=== PATIENT | male | born 1945 | race Caucasian/White ===

== ENCOUNTER 2016-07-12 06:21 | Inpatient (IN) | payer BC, OTHER ==
[2016-06-08 09:14] VITALS: BMI 33.0
--- NOTE | 2016-06-08 09:49 | PAT Medication Instructions ---
Service Date Jun 08, 2016. Current Home Medication List Alprostadil (Vasodilator) ([place]), 1,000 MG RE PRN Ascorbic Acid (Vitamin C), 500 MG PO QAM Aspirin (Aspirin Ec), 81 MG PO QAM Eswjzqg-Rznptnaksqjhu-Tykeisej (Excedrin Extra Strength), 1 TAB PO UD PRN for Pain Calcium (Caltrate), 1 TAB PO QAM Metformin HCl (Metformin HCl), 1,000 MG PO BID Multivitamin (Multivitamin), 1 TAB PO QAM Naproxen (Aleve), 440 MG PO PRN Pravastatin Sod (Pravastatin Sodium), 40 MG PO QAM Ramipril (Altace *), 2.5 MG PO QAM Sildenafil Citrate (Viagra), 100 MG PO PRN PRN for UD Tadalafil (Cialis), 20 MG PO UD Vitamin B Cmplx/Vitc/Folic Ac (Nephrocaps), 1 CAP PO QAM [Sleep Aid], 2 TAB PO HS PRN for PRN [eye promise restore], 1 TAB PO QAM Medication Instructions For Your Scheduled Surgery - Check with surgeon for instructions: Yornmgg-Gtqkfazilwzgg-Vwjdjkiv (Excedrin Extra Strength), 1 TAB PO UD PRN for Pain Naproxen (Aleve), 440 MG PO PRN - Hold the following medications 48 hours prior to surgery: Metformin HCl (Metformin HCl), 1,000 MG PO BID - Hold the following medications the morning of surgery: Ramipril (Altace *), 2.5 MG PO QAM Sildenafil Citrate (Viagra), 100 MG PO PRN PRN for UD Calcium (Caltrate), 1 TAB PO QAM Vitamin B Cmplx/Vitc/Folic Ac (Nephrocaps), 1 CAP PO QAM Multivitamin (Multivitamin), 1 TAB PO QAM Ascorbic Acid (Vitamin C), 500 MG PO QAM Tadalafil (Cialis), 20 MG PO UD [eye promise restore], 1 TAB PO QAM Alprostadil (Vasodilator) ([place]), 1,000 MG RE PRN - Take the following medications the morning of surgery with a sip of water: Pravastatin Sod (Pravastatin Sodium), 40 MG PO QAM Aspirin (Aspirin Ec), 81 MG PO QAM (okay per surgeon instructions) - Take the following medications as scheduled the night before surgery: [Sleep Aid], 2 TAB PO HS PRN for PRN Sildenafil Citrate (Viagra), 100 MG PO PRN PRN for UD Alprostadil (Vasodilator) ([place]), 1,000 MG RE PRN If you have any questions please call us at [phone] (Helen Fisher PA-C ) or [phone] or [phone]
[2016-06-08 10:48] LABS: BASO % 0.4 %; BASO ABS # 0.02 K/uL (0-0.2); COMPLETE YES; EOS % 3.1 %; HEMATOCRIT 39.5 % (42-52); IG% 0.2 %; LYMPH % 40.3 %; LYMPH ABS # 1.92 K/uL (1.2-3.4); MEAN CELL VOLUME 88.8 fL (80-100); MEAN CORPUSCULAR HEMOGLOBIN 31.2 pg (25-34); MEAN CORPUSCULAR HGB CONC 35.2 g/dl (32-36); MEAN PLATELET VOLUME 10.7 fL (7.4-10.4); MONO % 8.6 %; NEUT % 47.4 %; PLATELET COUNT 227 K/uL (130-400); RED BLOOD COUNT 4.45 M/uL (4.7-6.1); WHITE BLOOD COUNT 4.77 K/uL (4.8-10.8)
--- NOTE | 2016-06-08 10:55 | DIAGNOSTIC IMAGING REPORT ---
CHEST PREADMISSION(PA/LAT) CLINICAL HISTORY: Preoperative evaluation COMPARISON STUDY: Chest radiograph February 16, 2015 FINDINGS: Lung volumes are normal. There is no pneumothorax or pleural effusion. Cardiac size is normal. Prominence of the right mediastinal contour is unchanged. There is no evidence of pulmonary edema. No consolidation is present. The appearance of the chest is unchanged. IMPRESSION: No acute cardiopulmonary findings. Electronically signed by: Ian Ray M.D. 06/08/2016 10:53 AM
[2016-06-08 11:02] LABS: INR 0.9 (0.9-1.1); PROTHROMBIN TIME (PATIENT) 10.1 SECONDS (9.0-12.0)
[2016-06-08 11:29] LABS: BLOOD UREA NITROGEN 23 mg/dl (7-18); BUN/CREATININE RATIO 24.2 (10-20); C-REACTIVE PROTEIN < 0.29 mg/dl (0-0.29); CARBON DIOXIDE 25 mmol/L (21-32); CHLORIDE 105 mmol/L (98-107); CREATININE 0.95 mg/dl (0.60-1.40); GLUCOSE 143 mg/dl (70-99); POTASSIUM 4.3 mmol/L (3.5-5.1); SODIUM 140 mmol/L (136-145)
[2016-06-08 11:35] LABS: CALCIUM 9.7 mg/dl (8.5-10.1)
--- NOTE | 2016-07-08 08:22 | HISTORY & PHYSICAL EXAMINATION ---
DATE OF ADMISSION: 07/12/2016 CHIEF COMPLAINT: Left knee pain. HISTORY OF PRESENT ILLNESS: A 71-year-old gentleman who presents for surgical treatment of his left knee. He has got a long history of knee problems and had his right knee replaced about 16 months ago. He has done well with this. He has continues to have persistent pain and discomfort in his left knee. He describes discomfort with weightbearing. He has got stiffness in his knee. He has been through extensive conservative treatment including injections as well as Voltaren gel. This takes the edge off but does not adequately treat it. His walking tolerance is a couple of blocks. He would like to proceed with total knee replacement. PAST MEDICAL HISTORY: 1. Hypertension. 2. Elevated cholesterol. 3. Diabetes. 4. Prostate cancer. 5. Obesity with BMI of 33. PREVIOUS SURGERIES: Include: 1. Right total knee replacement done 03/03/2015. 2. Laparoscopies. 3. Rhinoplasty. 4. Pneumothorax. 5. Prostate surgery. ALLERGIES: None. CURRENT MEDICINES: Include: 1. Metformin. 2. Unspecified. 3. Pravastatin. 4. Aspirin. 5. Vitamin C. 6. Vitamin B. 7. Cialis. 8. Viagra. 9. Seroquel. 10. Aleve. 11. Tylenol. 12. Calcium with vitamin D. SOCIAL HISTORY: A 71-year-old gentleman. He is . No smoking or alcohol intake. FAMILY HISTORY: Significant for heart disease, Alzheimer disease, prostate cancer. REVIEW OF SYSTEMS: Significant for diabetes. Fairly well controlled. Denies any chest pain or shortness of breath. No history of DVT or PE. No dysuria. Does have a history of prostate cancer without recurrence. PHYSICAL EXAMINATION: GENERAL: Reveals a healthy, pleasant middle-aged male who looks to be in good health. HEAD, EYES, EARS, NOSE, AND THROAT EXAMINATION: Benign. NECK: Supple. No lymphadenopathy. LUNGS: Clear to auscultation. HEART: Has a regular rate and rhythm. ABDOMEN: Soft, nontender, nondistended. EXTREMITY EXAMINATION: Grossly neurovascularly intact except as follows: Examination of the left knee reveals slight varus alignment. Slight varus thrust with weightbearing. He has got bony hypertrophy medially. Small knee effusion. Range of motion is 5-120. No instability. X-RAYS: X-rays of the left knee from previously reviewed. It shows advanced medial and patellofemoral DJD. He has got complete loss of his medial joint space as well as advanced patellofemoral disease. ASSESSMENT: A 71-year-old gentleman 6 months out from a right knee replacement with advanced left knee degenerative joint disease. He would like to proceed with total knee replacement. PLAN: We are going taken to the operating room and do a left total knee replacement. The risks and benefits of this procedure were explained to the patient include but not limited to DVT, PE, , infection, neurological injury, vascular injury, bleeding problem, pain, limited range of motion, stiffness, failure to his symptoms, incomplete relief of symptoms, need for further surgery in the future, fracture, need for blood transfusion, etc. The patient understands and desires to proceed. Informed consent was obtained. There has been no change in his medical situation since his last visit. Labs were all normal. EKG showed sinus rhythm with first degree AV block. Chest x-ray is normal. As far as discharge plans, he is planning to be discharged to home with some home health using [facility] program. We will see him back 2 weeks postop. RAHUL
[~2016-07-12] VITALS: Ht 170.2 cm; Wt 95.7 kg
[2016-07-12] VITALS (12 sets, daily range): BP systolic 126–170; BP diastolic 65–94; PULSE 56–77; TEMP 36.5–37.1; O2SAT 95–100; Ht 170.2 cm; Wt 95.7 kg
[~2016-07-12 06:21] MED LIST: ACETAMINOPHEN 500 MG TAB PO SCH; ALPR1SUP6 RE; ALT25 PO; ASCO-63 PO; ASPI-391 PO; ASPI81TA28 PO; B-COCAP2 PO; BUPIVACAINE LIPOSOME 266 MG, BUPIVACAINE/EPINEPHRINE INJ 50 ML, SODIUM CHLORIDE 0.9% PF... INFIL SCH; CALCTAB5 PO; CEFAZOLIN 2000 MG/60 ML D5W 60 ML IV SCH; FAMOTIDINE 20 MG TAB PO SCH; GABAPENTIN 300 MG CAP PO SCH; GLC500 PO; LACTATED RINGER'S 1000ML 500 ML IV ONE; LACTATED RINGER'S 1000ML IV SCH; METOCLOPRAMIDE HCL 10 MG TAB PO SCH; MULT-506 PO; NAPR1TAB9 PO; PRVC/40 PO; SCOPOLAMINE 1.5 MG TDSY TD SCH; SILD100T PO; SLEEP AID PO; TADA10TA PO; eye promise restore PO
[2016-07-12] MEDS ORDERED: TRANEXAMIC ACID INJ 1,000 MG in SODIUM CHLORIDE 0.9% 100ML 100 ML IV SCH ×2 (06:30→17:00)
[2016-07-12] MEDS ORDERED: BUPIVACAINE 0.5 % 5 MG/1 ML PF 10ML VIAL ONE (06:35)
[2016-07-12] MEDS ORDERED: BUPIVACAINE 0.25% 30 ML VIAL ONE (06:35)
--- NOTE | 2016-07-12 06:50 | History & Physical Bridge Note ---
H&P Re-Evaluation Bridge Note: I have examined the patient, reviewed the History & Physical and in the interval since the performance of the History & Physical I have noted the following changes of clinical significance: No changes noted
[2016-07-12] MEDS ORDERED: FENTANYL CITRATE INJ 50 MCG/1 ML 2 ML VIAL ONE (07:23)
[2016-07-12] MEDS ORDERED: MIDAZOLAM HCL 1 MG/ML 2ML VIAL ONE (07:23)
[2016-07-12] MEDS ORDERED: PROPOFOL IV EMULSION 10 MG/ML 20 ML VIAL IV ONE (07:23)
[2016-07-12] MEDS ORDERED: LIDOCAINE HCL 2% 2 ML VIAL (20MG/ML) ONE (07:23)
[2016-07-12] MEDS ORDERED: BUPIVACAINE LIPOSOME 1/3% 266 MG/20 ML VIAL INFIL ONE (08:30)
[2016-07-12] MEDS ORDERED: ATROPINE SULFATE 0.1 MG/ML 5ML SYR IV PRN (09:00)
[2016-07-12] MEDS ORDERED: HYDROmorphone INJ 1 MG/ML SYR IV PRN (09:00)
[2016-07-12] MEDS ORDERED: EpHEDrine SULFATE INJ 50 MG/ML AMP IV PRN (09:00)
[2016-07-12] MEDS ORDERED: MEPERIDINE HCL 25 MG/ML CARP IV PRN (09:00)
[2016-07-12] MEDS ORDERED: FENTANYL CITRATE INJ 50 MCG/1 ML 2 ML VIAL IV PRN (09:00)
[2016-07-12] MEDS ORDERED: ONDANSETRON INJ 2 MG/ML 2 ML VIAL IV PRN ×2 (09:00→10:30)
[2016-07-12] MEDS ORDERED: LABETALOL HCL IV 5 MG/ML 20ML IV PRN (09:00)
[2016-07-12] MEDS ORDERED: BACITRACIN 50000 UNIT VIAL IR ONE (10:03)
--- NOTE | 2016-07-12 10:24 | [facility] Post Operative Brief Note ---
Immediate Operative Summary Operative Date Jul 12, 2016. Pre-Operative Diagnosis Left Knee Advanced Degenerative Joint Disease Post-Operative Diagnosis Left Knee Advanced Degenerative Joint Disease Procedure(s) Performed Left Total Knee Arthroplasty Surgeon Dr. Banda Ssas Developer Surgeon(s) MICHEL Mandujano Estimated Blood Loss 50 ml Findings Left Knee DJD + Ganglion Fluids (cc crystalloids) 1500 cc Specimens A. Left Knee Bone and Tissue B. Left Knee Mass, Possible Ganglion Drains None Anesthesia Spinal Complication(s) None Disposition Recovery Room / PACU
[2016-07-12] MEDS ORDERED: BISACODYL 10 MG SUPP PR PRN (10:30)
[2016-07-12] MEDS ORDERED: DiphenhydrAMINE HCL 50 MG/ML VIAL IV PRN (10:30)
[2016-07-12] MEDS ORDERED: ASPIRIN ACETAMINOPHEN CAFFEINE PO PRN (10:30)
[2016-07-12] MEDS ORDERED: MAGNESIUM HYDROXIDE SUSP 30 ML UDC PO PRN (10:30)
[2016-07-12] MEDS ORDERED: ALUMINUM/MAGNESIUM/SIMETH (MAALOX MAX) 30 ML UDC PO PRN (10:30)
[2016-07-12] MEDS ORDERED: SILVER SULFADIAZINE 1% CR 50 GM JAR EXT PRN (10:30)
[2016-07-12] MEDS ORDERED: NON-FORMULARY MEDICATION (Tadalafil (Cialis) 20 MG) PO SCH (10:30)
[2016-07-12] MEDS ORDERED: MoRPHine SULFATE 2 MG/ML CARP IV PRN (10:30)
[2016-07-12] MEDS ORDERED: TAMSULOSIN HCL 0.4 MG CAP PO PRN (10:30)
[2016-07-12] MEDS ORDERED: METOCLOPRAMIDE HCL INJ 5 MG/ML 2 ML VIAL IV PRN (10:30)
[2016-07-12] MEDS ORDERED: ALPROSTADIL RE SCH (10:30)
[2016-07-12] MEDS ORDERED: SLEEP AID PO PRN (10:30)
[2016-07-12] MEDS ORDERED: NON-FORMULARY MEDICATION (Sildenafil Citrate (Viagra) 100 MG) PO PRN (10:30)
[2016-07-12] MEDS ORDERED: OXYCODONE HCL IR 5 MG TAB (IMMEDIATE RELEASE) PO PRN (10:30)
[2016-07-12] MEDS ORDERED: DEXTROSE 50% 50 ML SYR IV PRN (10:45)
[2016-07-12] MEDS ORDERED: GLUCOSE 40% GEL 15 GM TUBE PO PRN (10:45)
[2016-07-12] MEDS ORDERED: GLUCOSE 10 TABS/TUBE PO PRN (10:45)
[2016-07-12] MEDS ORDERED: GLUCAGON FOR INJ 1 MG VIAL SQ PRN (10:45)
--- NOTE | 2016-07-12 10:56 | OPERATIVE REPORT ---
DATE OF OPERATION: 07/12/2016 SURGEON: Stu Banda MD BREAKER UP MACHINE OPERATOR: MICHEL Green PREOPERATIVE DIAGNOSIS: Left knee degenerative joint disease. POSTOPERATIVE DIAGNOSIS: 1. Left knee degenerative joint disease. 3. Left knee mass, probable ganglion. PROCEDURES PERFORMED: 1. Left cemented posterior stabilized total knee arthroplasty. 2. Excisional biopsy of left knee mass, probable ganglion. SPECIMENS: 1. Left knee sent for pathology. 2. Left soft tissue mass sent for pathology. Likely ganglion. TOURNIQUET TIME: 54 minutes at 300 mmHg. ANESTHESIA: Spinal with adductor canal block. DRAINS: None. OPERATIVE INDICATIONS: The patient is a 71-year-old very active gentleman, who has had a long history of knee problems. He underwent a right knee replacement a little over a year ago and has done well from this. He has developed persistent and progressive pain in the left knee, unresponsive to conservative treatment. He elected to proceed with left total knee arthroplasty. OPERATIVE FINDINGS: Operative findings revealed advanced left knee DJD. He had grade 4 [id number] disease in all 3 compartments. Eburnation of the trochlea as well as the lateral side of the patella. He did have a moderate soft tissue mass, emanating from the medial aspect of the joint capsule consistent with a ganglion. This was sent for pathology. OPERATIVE IMPLANTS: Operative implants consisted of: 1. Biomet Vanguard size 67.5 left posterior stabilized femoral component. 2. Biomet size 71 tibial tray. 3. A 12-mm posterior stabilized polyethylene insert. 4. A 31 x 8 all poly patella. OPERATIVE PROCEDURE: The patient was taken to the operating room, identified and placed on the operating table in the supine position. All contact areas were appropriately padded. IV antibiotics were provided by the anesthesia team. A spinal anesthetic and adductor canal block had been provided in the holding area. Mendez catheter was placed in sterile fashion. A left thigh tourniquet was then placed and left lower extremity was then prepped and draped in usual sterile fashion. Left leg was elevated and exsanguinated with Esmarch and tourniquet was placed at 300 mmHg. An anterior approach to the left knee was then performed through a longitudinal incision centered over the patella. Sharp dissection was carried out through the subcutaneous tissues down to the level of the extensor mechanism. Upon defining the extensor mechanism, there was a rent in the joint capsule anteromedially, just medial to the patellar tendon, which showed some emanating tissue coming out of this. A medial parapatellar arthrotomy incision was made. I dissected this tissue out and it appeared like a fairly large ganglion. This was sent for pathology. The remainder of the medial parapatellar arthrotomy incision was completed. Some subperiosteal dissection was carried out medially. The fat pad was resected from beneath the patellar tendon. The lateral patellofemoral ligament was released. The patella was everted and knee was flexed. The osteophytes were taken off the distal femur. The ACL and PCL were then released from the distal femur and the tibia subluxated anteriorly. The external tibial alignment jig was then placed in the anterior face of the tibia and adjusted 14 mm medially. Proximal tibial cut was made to remove about 2-3 mm of bone from the most deficient aspect of the medial tibial plateau. Tibia was then sized to a size 71. I did downsize this just slightly to maximize external rotation due to the patellofemoral tracking and arthritis. The attention then drawn to the femur. The distal femur was entered with a sharp drill. Intramedullary canal was suctioned. A left 5-degree valgus cutting guide was placed. Distal femoral cutting block was pinned in place. Distal femoral cut was made to take an additional 3 mm of bone off the distal femur. The femur was then sized to a size 67.5. We did downsize this just slightly. The AP cutting block was pinned parallel to the epicondylar axis, which was 5 degrees of external rotation. The anterior cut, anterior chamfer, posterior cut, and posterior chamfer cuts were made. Box cutting guide was placed and adjusted slightly lateral and the box cut was made. The knee was flexed. The remnants of the medial and lateral menisci were excised. The osteophytes were taken off the posterior aspect of the femur. Trial femoral component was placed. Tibial tray was pinned in maximum external rotation and the drill and stem punch were used to create defect in proximal tibia for the tibial tray. The knee was then trialed and the 12-mm insert fit most appropriately. Attention was then drawn to the patella. The patella was cleaned of all soft tissues. Patella thickness measured 22 mm, cut down to 13. It was sized to a size 31 patella. Lug holes were drilled for the 31 patella. Lateral osteophyte was removed. Patella button was placed. Knee was taken through range of motion and patella tracked nicely with no thumbs test. Attention was then drawn toward placement of the permanent components. All trial components were removed. A bone plug was placed in the distal femur to limit blood loss. A double batch of [place] G cement was mixed. A left size 67.5 posterior stabilized femoral component, size 71 tibial tray, a 12-mm posterior stabilized polyethylene insert, and a 31 x 8 all poly patella were then cemented in place. Knee was brought out into full extension until cement hardened. A final cement check was then performed. Pericapsular tissues were injected with a total of 100 mL of a combination of 20 mL of Exparel, 30 mL of normal saline, and 50 mL of 0.25% Marcaine with epinephrine. The patient did receive 1 gram of tranexamic acid. The tourniquet was let down for a final tourniquet time of 54 minutes. Hemostasis was assured with use of electrocautery. The wound was once again irrigated. The extensor mechanism was then closed with a combination of #1 PDS suture and #1 Vicryl suture in a [id number] fashion. Extensor mechanism was checked and found to be intact. Subcutaneous tissues were then closed with 2-0 Dexon suture in a buried interrupted fashion. Skin was closed skin jose. Leg was then cleaned and dried and a sterile dressing of Xeroform, 4 x 4, sterile cast padding and Nicolas bandage were applied. The patient then transferred to the recovery room in stable condition. The patient tolerated the procedure well with no complications. All needle and sponge counts were correct at the end of the operation. I attest to the content of the Intraoperative Record and any orders documented therein. Any exceptio ns are noted below.
--- NOTE | 2016-07-12 11:10 | DIAGNOSTIC IMAGING REPORT ---
LEFT KNEE 1 OR 2 VIEWS ROUTINE CLINICAL HISTORY: Left knee degenerative joint disease. Arthroplasty. COMPARISON: Knee radiograph March 17, 2016. FINDINGS: Alignment of the total left knee arthroplasty is anatomic. There is no fracture or unexpected radiopaque foreign body. Skin jose are present. IMPRESSION: Expected findings following total left knee arthroplasty. Electronically signed by: Ian Ray M.D. 07/12/2016 11:08 AM Dictated Date/Time: 07/12/2016 11:07 AM
--- NOTE | 2016-07-12 12:32 | Anesthesiology Progress Note ---
Anesthesia Post Op Note Date & Time Jul 12, 2016 at 12:31 Vital Signs Pain Intensity: 0.0 Vital Signs Past 12 Hours Date Time Temp Pulse Resp B/P Pulse Ox O2 Delivery O2 Flow Rate FiO2 07/12/16 12:03 36.6 56 17 135/76 98 Nasal Cannula 3.0 07/12/16 11:37 98 Nasal Cannula 2.0 07/12/16 11:31 36.7 58 16 140/65 98 Nasal Cannula 2.0 07/12/16 11:30 97 Nasal Cannula 2.0 07/12/16 11:15 37.0 56 15 140/66 97 Nasal Cannula 2 07/12/16 11:05 37.0 56 15 134/72 98 Nasal Cannula 2 07/12/16 10:55 61 15 142/81 97 Nasal Cannula 2 07/12/16 10:45 59 15 136/80 97 Nasal Cannula 2 07/12/16 10:35 64 15 156/87 99 Mask 10 07/12/16 10:29 36.4 83 16 177/87 99 Mask 10 07/12/16 07:13 36.9 77 20 160/94 95 Room Air Notes Mental Status: alert / awake / arousable, participated in evaluation Pt Amnestic to Procedure: Yes Nausea / Vomiting: adequately controlled Pain: adequately controlled Airway Patency, RR, SpO2: stable & adequate BP & HR: stable & adequate Hydration State: stable & adequate Neuraxial Anesthesia: was administered, sensory block is resolving Anesthetic Complications: no major complications apparent
[2016-07-12] MEDS: SODIUM CHLORIDE 0.9% 1000ML 1,000 ML IV SCH ×2 (12:39→20:27)
[2016-07-12] MEDS: ACETAMINOPHEN 500 MG TAB PO SCH ×2 (13:27→21:59)
[2016-07-12] MEDS: KETOROLAC TROMETHAMINE 15 MG/ML VIAL IV. SCH ×2 (13:28→20:28)
--- NOTE | 2016-07-12 14:45 | PROGRESS NOTE ---
DATE: 07/12/2016 SUBJECTIVE: A 71-year-old gentleman, postop from a left total knee replacement. He is doing well. Just starting to get soreness in his leg. No chest pain or shortness of breath. Not feeling dizzy or lightheaded. OBJECTIVE: VITAL SIGNS: Temperature is 36.7. Vital signs stable. PHYSICAL EXAMINATION: GENERAL: Reveals a healthy pleasant middle-aged male. He is lying in bed, looks pretty comfortable. He used to work on his computer. LUNGS: Clear to auscultation. HEART: Regular rate and rhythm. ABDOMEN: Soft, nontender, nondistended. EXTREMITIES: Grossly neurovascularly intact except as follows: Examination of the left lower extremity reveals the leg to be well aligned. Dressing is clean, dry, and intact. He can dorsiflex and plantarflex his foot appropriately. He has got brisk refill. X-RAYS: X-rays of the left knee from recovery room were reviewed. It shows a left cemented posterior stabilized total knee arthroplasty. Components look to be in good position. No signs of problems. ASSESSMENT: A 71-year-old gentleman, postop from a left knee replacement, doing well. His pain is controlled. He is neurologically intact. PLAN: 1. DVT prophylaxis including thigh-high TEDs, SCDs, and aspirin twice a day. 2. PT/OT. Weightbearing as tolerated. Left total knee protocol. 3. Pain control. Doing well with current pain regimen. 4. IV antibiotics x24 hours. 5. Disposition: Plan to discharge to home with some home health once adequately recovered.
[2016-07-12] MEDS: CHECK SCOPOLAMINE PATCH PLACEMENT SCH ×2 (15:42→23:49)
[2016-07-12] MEDS: CEFAZOLIN IV 2,000 MG in DEXTROSE 5% 50ML 50 ML IV SCH ×2 (15:42→23:49)
[2016-07-12] MEDS ORDERED: INSULIN HUMAN REGULAR SC SCH (17:15)
[2016-07-12] MEDS: FERROUS GLUCONATE 324 MG TAB PO SCH (17:47)
[2016-07-12] MEDS: INSULIN HUMAN REGULAR SC SCH ×2 (17:54→20:39)
[2016-07-12] MEDS: ASPIRIN 325 MG ECTAB PO SCH (20:29)
[2016-07-12] MEDS: TAPENTADOL ER 50 MG TABCR PO SCH (20:29)
[2016-07-12] MEDS: ENALAPRIL MALEATE 10 MG TAB PO SCH (20:29)
[2016-07-12] MEDS: DOCUSATE SODIUM 100 MG CAP PO SCH (20:31)
[2016-07-12] MEDS: ZOLPIDEM TARTRATE 5 MG TAB PO PRN (22:01)
[2016-07-13] MEDS: KETOROLAC TROMETHAMINE 15 MG/ML VIAL IV. SCH ×4 (02:22→21:10)
[2016-07-13] MEDS: ZOLPIDEM TARTRATE 5 MG TAB PO PRN ×2 (02:25→22:11)
[2016-07-13 03:10] VITALS: BP 132/73; PULSE 61; TEMP 36.6; O2SAT 95
[2016-07-13] MEDS: SODIUM CHLORIDE 0.9% 1000ML 1,000 ML IV SCH (04:47)
[2016-07-13] MEDS: ACETAMINOPHEN 500 MG TAB PO SCH ×3 (06:04→22:11)
[2016-07-13 06:35] LABS: HEMATOCRIT 32.6 % (42-52); MEAN CELL VOLUME 87.9 fL (80-100); MEAN CORPUSCULAR HGB CONC 35.3 g/dl (32-36); MEAN PLATELET VOLUME 10.1 fL (7.4-10.4); PLATELET COUNT 208 K/uL (130-400); RED BLOOD COUNT 3.71 M/uL (4.7-6.1); WHITE BLOOD COUNT 6.03 K/uL (4.8-10.8)
[2016-07-13 07:08] LABS: CALCIUM 8.1 mg/dl (8.5-10.1); CREATININE 0.9 mg/dl (0.60-1.40); POTASSIUM 3.9 mmol/L (3.5-5.1)
[2016-07-13 07:37] VITALS: O2SAT 94
[2016-07-13 07:47] VITALS: BP 156/84; PULSE 69; TEMP 36.6; O2SAT 94
[2016-07-13] MEDS: CHECK SCOPOLAMINE PATCH PLACEMENT SCH ×2 (08:28→16:00)
[2016-07-13] MEDS: INSULIN HUMAN REGULAR SC SCH ×4 (08:33→21:25)
[2016-07-13] MEDS: TAPENTADOL ER 50 MG TABCR PO SCH ×2 (08:57→21:28)
[2016-07-13] MEDS: CEROVITE ADV FORMULA TAB PO SCH (08:58)
[2016-07-13] MEDS: CALCIUM 600MG + VIT D 400 IU TAB PO SCH (08:58)
[2016-07-13] MEDS: PRAVASTATIN SOD 40 MG TAB PO SCH (08:58)
[2016-07-13] MEDS: NEPHROCAPS PO SCH (08:58)
[2016-07-13] MEDS: ASPIRIN 325 MG ECTAB PO SCH ×2 (08:58→21:26)
[2016-07-13] MEDS: ASCORBIC ACID 500 MG TAB PO SCH (08:59)
[2016-07-13] MEDS: MULTIVITAMIN TAB PO SCH (08:59)
[2016-07-13] MEDS: DOCUSATE SODIUM 100 MG CAP PO SCH ×2 (08:59→21:26)
[2016-07-13] MEDS: ENALAPRIL MALEATE 10 MG TAB PO SCH (08:59)
[2016-07-13] MEDS: PANTOprazole SOD 40 MG TAB PO SCH (08:59)
[2016-07-13] MEDS: FERROUS GLUCONATE 324 MG TAB PO SCH ×3 (08:59→17:57)
[2016-07-13] MEDS ORDERED: MULTIVITAMIN TAB PO SCH (09:00)
[2016-07-13] MEDS ORDERED: RXC5 PO (10:11)
[2016-07-13] MEDS ORDERED: MORP15TA19 PO (10:11)
[2016-07-13] MEDS ORDERED: ASPEC325 PO (10:11)
[2016-07-13] MEDS ORDERED: ACET-1138 PO (10:11)
--- NOTE | 2016-07-13 10:13 | Discharge Instructions ---
Discharge Instructions Admission Reason for Admission: Left Knee Degenerative Joint Disease Discharge Discharge Diagnosis / Problem: Left Knee Replacement Discharge Goals Goal(s): Decrease discomfort, Improve function, Increase independence, Improve disease control, Therapeutic intervention Activity Recommendations Activity Limitations: per Instructions/Follow-up section Weightbearing Status: Left weightbearing . Instructions / Follow-Up Instructions / Follow-Up ACTIVITY RECOMMENDATIONS: Physical Therapy: * You will go to physical therapy three times each week for four to six weeks after your surgery in order to regain your knee range of motion and to retrain your knee to work properly. * It is just as important to make sure you are getting your knee perfectly straight as it is to regain your knee bend. * Taking a pain pill an hour before therapy can help you have a more productive and comfortable therapy session. Home Exercise: * You were shown a series of exercises (heel props, heel slides, etc.) in the hospital. Do these exercises three to four times each day including the exercises you were shown in physical therapy. Walking: * Get up and walk several times each day. For the first four weeks, try not to stand or walk for more than one hour at a time. If you do stand or walk for more than one hour, you will not hurt anything, but your knee and leg will likely swell. * As you feel comfortable, you may change from the walker or crutches to a cane and then to independent walking. MEDICATIONS: New Medicine: * You will likely be taking one or more of these medications: 1. MS Contin - A long-acting pain medication. Take 1 tablet twice a day for the first ten days to decrease your baseline level of pain. 2. Oxycodone - A quick and shorter-acting pain medication. Take one to two tablets every four to six hours to lessen your pain. 3. Aspirin - Thins your blood to lessen the chance of forming a blood clot. * The most common side effects of pain medicine and iron are nausea and constipation. If nausea or constipation is too much of a problem or if you have any questions about your new medicines or doses, call [facility] at . We will try to help you manage these issues. VERY IMPORTANT TO READ AND REVIEW" Pain: * The immediate post-operative period after knee replacement surgery is often quite painful. * You are given a prescription for pain medicine. You should take it, as directed, when you need it, especially before physical therapy and before going to bed. Pain that interferes with sleep is very common and can last several months. * You will likely need pain medicine for the first four to six weeks. It will not stop all of the pain. The pain will lessen and as you feel better, you may change to milder pain medicine such as Tylenol. * The most common side effects of pain medicine are nausea and constipation, so don't take more than you need. SPECIAL CARE INSTRUCTIONS: TEDs/Elastic Stockings: * The white elastic stockings help limit swelling and prevent blood clots from forming in your legs. The more you wear them, the more they work. * Wear them for six weeks after knee replacement surgery and four weeks after partial knee replacement. Prevention of Infection: * Take antibiotics one hour before any dental cleaning, dental work, urological procedure, gastrointestinal procedure or any invasive surgery in order to prevent your new joint from getting infected. * You may get the antibiotics from the doctor performing the procedure or you may call our office at before and we will call in a prescription to the pharmacy of your choice. Things to Watch For: * Drainage from the incision site that occurs more than one week after your surgery. * Severely increased knee/leg pain or swelling. * Increased redness at the incision site. * Fever above 102 degrees Fahrenheit. * Unusual chest pain or shortness of breath. * Unusual pain or burning with urination. Call [facility] at with any of the above problems or if you have any questions about your medicines or recovery. FOLLOW UP VISIT: Make an appointment to see your doctor for approximately two weeks after surgery for a progress check and staple removal by calling the office at . Current Hospital Diet Patient's current hospital diet: Diabetes Type 2 Diet Discharge Diet Recommended Diet: Diabetes Type 2 Diet Procedures Procedures Performed: Left Total Knee Arthroplasty Pending Studies Studies pending at discharge: no Medical Emergencies . Who to Call and When: Medical Emergencies: If at any time you feel your situation is an emergency, please call [phone] immediately. . Non-Emergent Contact Non-Emergency issues call your: Surgeon . "Provider Documentation" section prepared by Stu Banda. VTE Core Measure Inpt VTE Proph given/why not?: Other Anticoagulation, T.E.D. Stockings, SCD's
--- NOTE | 2016-07-13 10:24 | PROGRESS NOTE ---
DATE: 07/13/2016 SUBJECTIVE: A 71-year-old gentleman postop day 1 from a left knee replacement. He is doing well. Pain has been controlled. No chest pain or shortness of breath. Not feeling dizzy or lightheaded. OBJECTIVE: VITAL SIGNS: Temperature 36.6. Vital signs stable. PHYSICAL EXAMINATION: GENERAL: Reveals a healthy, pleasant middle-aged male. He was up walking around his room using his walker when I visited him this morning. LUNGS: Clear to auscultation. HEART: Regular rate and rhythm. ABDOMEN: Soft, nontender, nondistended. EXTREMITIES: Grossly neurovascularly intact except as follows: Examination of the left lower extremity reveals the dressing to be clean, dry and intact. He can dorsiflex and plantarflex his foot appropriately. NEUROLOGIC: He is neurologically intact. LABORATORY DATA: Hemoglobin 11.5, hematocrit 32.6. Electrolytes are stable. ASSESSMENT: A 71-year-old gentleman postop day 1 from a left knee replacement, doing pretty well. Pain is controlled. PLAN: 1. DVT prophylaxis including thigh-high TEDs, SCDs, and aspirin twice a day. 2. PT/OT. Weightbearing as tolerated. Left total knee protocol. 3. Pain control, doing pretty well with current pain regimen. 4. Diabetes, on insulin sliding scale coverage. 5. Disposition: Plan to discharge to home with home health once adequately recovered.
[2016-07-13 12:00] VITALS: BP 145/84; PULSE 80; TEMP 36.7; O2SAT 93
[2016-07-13 15:16] VITALS: BP 159/83; PULSE 81; TEMP 37.5; O2SAT 95
[2016-07-13 23:11] VITALS: BP 143/79; PULSE 79; TEMP 37.2; O2SAT 95
[2016-07-14] MEDS: ZOLPIDEM TARTRATE 5 MG TAB PO PRN (00:04)
[2016-07-14] MEDS: CHECK SCOPOLAMINE PATCH PLACEMENT SCH (00:28)
[2016-07-14] MEDS: KETOROLAC TROMETHAMINE 15 MG/ML VIAL IV. SCH ×3 (01:57→10:11)
[2016-07-14] MEDS: ACETAMINOPHEN 500 MG TAB PO SCH (05:41)
[2016-07-14 06:55] VITALS: BP 168/88; PULSE 77; TEMP 37.1; O2SAT 96
--- NOTE | 2016-07-14 07:30 | PROGRESS NOTE ---
DATE: 07/14/2016 SUBJECTIVE: 71-year-old gentleman postop day 2 from a left knee replacement. He is doing well. Pain is controlled. No chest pain or shortness of breath. Not feeling dizzy or lightheaded. OBJECTIVE: VITAL SIGNS: Temperature 37.1. Vital signs stable. Some mild hypertension. PHYSICAL EXAMINATION: GENERAL: Reveals a healthy, pleasant, middle-aged male. He is sitting up in bed and looks pretty comfortable. LUNGS: Clear to auscultation. HEART: Regular rate and rhythm. ABDOMEN: Soft, nontender, nondistended. EXTREMITIES: Grossly neurovascularly intact except as follows: Examination of the left lower extremity reveals the leg to be well aligned. There is some moderate swelling. Small amount of drainage. He can dorsiflex and plantarflex his foot appropriately. Calf is soft and supple. ASSESSMENT: 71-year-old gentleman postop day 2 from a left knee replacement, doing pretty well. PLAN: 1. DVT prophylaxis including thigh-high TEDs, SCDs, and aspirin twice a day. 2. PT/OT. Weightbearing as tolerated. Left total knee protocol. 3. Pain control, doing pretty well with current pain regimen. 4. Disposition: Plan to discharge to home with some home health once adequately recovered.
[2016-07-14] MEDS: MULTIVITAMIN TAB PO SCH (09:00)
[2016-07-14] MEDS: ASPIRIN 325 MG ECTAB PO SCH (09:43)
[2016-07-14] MEDS: NEPHROCAPS PO SCH (09:43)
[2016-07-14] MEDS: FERROUS GLUCONATE 324 MG TAB PO SCH (09:43)
[2016-07-14] MEDS: DOCUSATE SODIUM 100 MG CAP PO SCH (09:43)
[2016-07-14] MEDS: ASCORBIC ACID 500 MG TAB PO SCH (09:44)
[2016-07-14] MEDS: CEROVITE ADV FORMULA TAB PO SCH (09:44)
[2016-07-14] MEDS: PANTOprazole SOD 40 MG TAB PO SCH (09:44)
[2016-07-14] MEDS: PRAVASTATIN SOD 40 MG TAB PO SCH (09:44)
[2016-07-14] MEDS: CALCIUM 600MG + VIT D 400 IU TAB PO SCH (09:45)
[2016-07-14] MEDS: ENALAPRIL MALEATE 10 MG TAB PO SCH (09:45)
[2016-07-14] MEDS: INSULIN HUMAN REGULAR SC SCH (09:53)
[2016-07-14] MEDS: TAPENTADOL ER 50 MG TABCR PO SCH (09:56)
[2016-07-14 10:54] VITALS: BP 168/88; PULSE 77; TEMP 37.1; O2SAT 96
--- NOTE | 2016-07-22 17:09 | DISCHARGE SUMMARY ---
ADMITTING PHYSICIAN AND SURGEON: Dr. Banda. ADMITTING DIAGNOSIS: Left knee degenerative joint disease. SURGERY PERFORMED: Left total knee replacement with excisional biopsy also of the left knee mass. SECONDARY DIAGNOSES: Include hypertension, elevated cholesterol, diabetes, prostate cancer, obesity. CONSULTATIONS: None obtained. HISTORY AND PHYSICAL EXAMINATION: Well documented in the patient's chart. HOSPITAL COURSE: The patient was admitted on 07/12/2016 underwent total knee replacement. He tolerated the procedure well. There were no complications. He was transferred to the PACU postoperatively and later to the orthopedic floor for further care. He was given Ancef for antibiotic prophylaxis, MARIA DEL CARMEN stockings, SCDs and aspirin for DVT prophylaxis. Hemoglobin, hematocrit and vital signs were monitored during his hospital stay and remained stable. He developed some mild postoperative anemia with a hemoglobin of 11.5 did not require any blood transfusions. There were no complications. By postoperative day 2, he was tolerating a diabetic diet. Pain was controlled with oral pain medicine. He was participating in physical therapy. He had no signs or symptoms of deep vein thrombosis. On postop day 2, he was discharged home in good condition, set up with home health services. He was given printed discharge instructions including prescriptions for extra strength Tylenol, aspirin 325 mg b.i.d., MS Contin and oxycodone. Continue his home medications with the exception of his home dose of aspirin which was changed. Continue physical therapy, weightbearing as tolerated, MARIA [place] CARMEN stockings. Follow up in 10-12 days or sooner if there are problems or concerns.
== END 2016-07-14 11:43 | disposition home health service (06) | DRG 470 ==
LOC: ENRESERVDT → ENRESERVTM → C.ACU 06:21 → C.3E 06:40
PROVIDERS: ADMIT Orthopaedic Surgery Sports Medicine; ATTEND Orthopaedic Surgery Sports Medicine
PROC: 0SRD0J9 Replacement of Left Knee Joint with Synthetic Substitute, Cemented, Open Approach (ICD-10-PCS; principal; 2016-07-12 08:50)
PROC: 0SBD0ZX Excision of Left Knee Joint, Open Approach, Diagnostic (ICD-10-PCS; principal; 2016-07-12 08:50)
DX: M17.12 Unilateral primary osteoarthritis, left knee (principal); M67.462 Ganglion, left knee; I10 Essential (primary) hypertension; E78.00 Pure hypercholesterolemia, unspecified; E11.9 Type 2 diabetes mellitus without complications; E66.9 Obesity, unspecified; Z68.33 Body mass index [BMI] 33.0-33.9, adult; Z96.651 Presence of right artificial knee joint; Z87.891 Personal history of nicotine dependence; Z79.1 Long term (current) use of non-steroidal anti-inflammatories (NSAID); Z79.82 Long term (current) use of aspirin; Z79.84 Long term (current) use of oral hypoglycemic drugs

== ENCOUNTER → 2017-01-19 | Outpatient (CLI) | payer BC, OTHER ==
[~2017-01-19] MED LIST changes: +ACET-1138 PO; -ACETAMINOPHEN 500 MG TAB PO SCH; +ASPEC325 PO; -ASPI81TA28 PO; -BUPIVACAINE LIPOSOME 266 MG, BUPIVACAINE/EPINEPHRINE INJ 50 ML, SODIUM CHLORIDE 0.9% PF... INFIL SCH; -CEFAZOLIN 2000 MG/60 ML D5W 60 ML IV SCH; -FAMOTIDINE 20 MG TAB PO SCH; -GABAPENTIN 300 MG CAP PO SCH; -LACTATED RINGER'S 1000ML 500 ML IV ONE; -LACTATED RINGER'S 1000ML IV SCH; -METOCLOPRAMIDE HCL 10 MG TAB PO SCH; +RXC5 PO; -SCOPOLAMINE 1.5 MG TDSY TD SCH
[2017-01-19 13:25] LABS: ESTIMATED AVERAGE GLUCOSE 154 mg/dl; HA1C FLAG Normal (Normal)
[2017-01-19 14:41] LABS: ALKALINE PHOSPHATASE 76 U/L (45-117); ALT/SGPT 20 U/L (12-78); BLOOD UREA NITROGEN 17 mg/dl (7-18); BUN/CREATININE RATIO 17.7 (10-20); CARBON DIOXIDE 26 mmol/L (21-32); CHLORIDE 107 mmol/L (98-107); CHOLESTEROL 154 mg/dl (0-200); CHOLESTEROL/HDL RATIO 2.4; CREATININE 0.95 mg/dl (0.60-1.40); GLUCOSE 142 mg/dl (70-99); HDL CHOLESTEROL 65 mg/dl; LDL CHOLESTEROL CALCULATED 77 mg/dl; POTASSIUM 4.3 mmol/L (3.5-5.1); SODIUM 141 mmol/L (136-145); TRIGLYCERIDES 58 mg/dl (0-150); VERY LOW DENSITY LIPOPROT CALC 12 mg/dl
[2017-01-19 14:42] LABS: ALB/GLOB RATIO 0.9 (0.9-2); AST/SGOT 14 U/L (15-37)
--- NOTE | 2017-01-25 10:07 | CODING QUERY MEDICAL NECESSITY ---
SUPPORTING DIAGNOSIS NEEDED Dr. Jeffries, A supporting diagnosis is required for the test/procedure performed on this patient in order for us to be reimbursed by the patient's insurance. Please provide a supporting diagnosis for the following test/procedure listed below next to the test name along with your signature. *If there is no additional diagnosis for this patient that would support the following test/procedure please document that below next to the test/procedure. Test(s)/Procedure(s) that require a supporting diagnosis: * [id number] GLYCATED HEMOGLOBIN DIAGNOSIS: DATE OF SERVICE: 01/19/17 Provider Signature: Date: Thank you Brandon Carrillo [facility] Information Management Once completed, please kindly fax back to [phone] For questions please call [phone]
== END | disposition home or self-care (01) ==
LOC: C.LAB1850 10:38
PROVIDERS: ATTEND Internal Medicine
DX: C61 Malignant neoplasm of prostate (principal); E11.9 Type 2 diabetes mellitus without complications

== ENCOUNTER → 2017-07-27 | Outpatient (CLI) | payer BC ==
[2017-07-27 13:59] LABS: HEMOGLOBIN A1C 7.3 % (4.5-5.6)
== END | disposition home or self-care (01) ==
LOC: C.LABBC 10:20
PROVIDERS: ATTEND Internal Medicine
DX: C61 Malignant neoplasm of prostate (principal)

== ENCOUNTER → 2017-08-14 | Outpatient (CLI) | payer BC ==
[2017-08-14 17:05] LABS: ALBUMIN 3.9 gm/dl (3.4-5.0); ALT/SGPT 22 U/L (12-78); BLOOD UREA NITROGEN 20 mg/dl (7-18); CALCIUM 9.5 mg/dl (8.5-10.1); CARBON DIOXIDE 25 mmol/L (21-32); CREATININE 1.04 mg/dl (0.60-1.40); GLUCOSE 172 mg/dl (70-99); POTASSIUM 4.3 mmol/L (3.5-5.1); SODIUM 137 mmol/L (136-145)
[2017-08-14 17:08] LABS: ALKALINE PHOSPHATASE 78 U/L (45-117); AST/SGOT 14 U/L (15-37); TOTAL PROTEIN 7.7 gm/dl (6.4-8.2)
== END | disposition home or self-care (01) ==
LOC: C.LABBC 15:13
PROVIDERS: ATTEND Internal Medicine
DX: I10 Essential (primary) hypertension (principal)

== ENCOUNTER → 2018-02-07 | Outpatient (CLI) | payer BC ==
[2018-02-07 10:33] LABS: BASO % 0.4 %; BASO ABS # 0.02 K/uL (0-0.2); EOS % 2.6 %; EOS ABS # 0.15 K/uL (0-0.5); HEMATOCRIT 38.7 % (42-52); HEMOGLOBIN 13.5 g/dL (14.0-18.0); IG# 0.02 K/uL (0.00-0.02); LYMPH % 40.1 %; LYMPH ABS # 2.28 K/uL (1.2-3.4); MEAN CELL VOLUME 89.6 fL (80-100); MEAN CORPUSCULAR HEMOGLOBIN 31.3 pg (25-34); MEAN CORPUSCULAR HGB CONC 34.9 g/dl (32-36); MEAN PLATELET VOLUME 10.5 fL (7.4-10.4); MONO ABS # 0.51 K/uL (0.11-0.59); NEUT % 47.5 %; NEUT ABS # 2.71 K/uL (1.4-6.5); PLATELET COUNT 230 K/uL (130-400); RED CELL DISTRIBUTION WIDTH CV 12.8 % (11.5-14.5); RED CELL DISTRIBUTION WIDTH SD 41.6 fL (36.4-46.3); WHITE BLOOD COUNT 5.69 K/uL (4.8-10.8)
[2018-02-07 11:04] LABS: HEMOGLOBIN A1C 6.8 % (4.5-5.6)
[2018-02-07 13:38] LABS: ALBUMIN 3.6 gm/dl (3.4-5.0); ALKALINE PHOSPHATASE 62 U/L (45-117); ALT/SGPT 18 U/L (12-78); AST/SGOT 13 U/L (15-37); BLOOD UREA NITROGEN 25 mg/dl (7-18); CALCIUM 8.8 mg/dl (8.5-10.1); CARBON DIOXIDE 24 mmol/L (21-32); CHOLESTEROL 152 mg/dl (0-200); CREATININE 1.11 mg/dl (0.60-1.40); GLUCOSE 133 mg/dl (70-99); LDL CHOLESTEROL CALCULATED 79 mg/dl; POTASSIUM 4.4 mmol/L (3.5-5.1); SODIUM 137 mmol/L (136-145); TOTAL PROTEIN 7.2 gm/dl (6.4-8.2)
== END | disposition home or self-care (01) ==
LOC: C.LABBC 09:01
PROVIDERS: ATTEND Internal Medicine
DX: I10 Essential (primary) hypertension (principal); E11.9 Type 2 diabetes mellitus without complications; E78.5 Hyperlipidemia, unspecified; C61 Malignant neoplasm of prostate

== ENCOUNTER → 2018-02-08 | Outpatient (CLI) | payer BC | END | disposition home or self-care (01) | LOC: C.LABSPEC 13:35 | PROVIDERS: ATTEND Internal Medicine | DX: C61 Malignant neoplasm of prostate (principal); I10 Essential (primary) hypertension; E11.9 Type 2 diabetes mellitus without complications; E78.5 Hyperlipidemia, unspecified ==

== ENCOUNTER 2020-11-27 05:05 | Observation (INO) ==
--- NOTE | 2020-10-28 10:59 | PAT Medication Instructions ---
Medication Instructions Date of Service October 28, 2020 Home Medications Medication Instructions Recorded metformin 500 mg tablet 1,000 mg PO BID #360 tab 03/19/20 sildenafil 100 mg tablet 100 mg PO DAILY PRN #10 tab 09/02/20 Calcium 600 + D(3) 1 cap PO QAM acetaminophen [Tylenol Extra Strength] 2 tab PO QAM ascorbic acid (vitamin C) [Vitamin C] 1 tab PO DAILY aspirin 81 mg PO QAM multivitamin [Multiple Vitamins] 1 tab PO QAM naproxen sodium [Aleve] 440 mg PO QPM vitamin B complex 1 cap PO QAM triamcinolone acetonide 0.1 % topical cream 1 appln TOP BID PRN metformin 500 mg tablet 1,000 mg PO BID sildenafil 100 mg tablet 100 mg PO DAILY PRN [facility] Restore 1 tab PO QAM alprostadil [Mitchell] 1,000 mcg UR UD PRN naproxen-diphenhydramine [Naproxen PM] 2 tab PO HS pravastatin 40 mg PO QAM ramipril 5 mg PO QAM ASK your surgeon for instructions naproxen sodium [Aleve] 440 mg PO QPM naproxen-diphenhydramine [Naproxen PM] 2 tab PO HS STOP taking 2 weeks before surgery (or as soon as possible if surgery is within 2 weeks) Eye Promise Restore 1 tab PO QAM STOP taking 24 hours before surgery triamcinolone acetonide 0.1 % topical cream 1 appln TOP BID PRN DO NOT take the morning of surgery Calcium 600 + D(3) 1 cap PO QAM ascorbic acid (vitamin C) [Vitamin C] 1 tab PO DAILY multivitamin [Multiple Vitamins] 1 tab PO QAM vitamin B complex 1 cap PO QAM metformin 500 mg tablet 1,000 mg PO BID sildenafil 100 mg tablet 100 mg PO DAILY PRN alprostadil [Mitchell] 1,000 mcg UR UD PRN ramipril 5 mg PO QAM Take morning of surgery With a small sip of water, OTHERWISE NOTHING TO EAT OR DRINK AFTER MIDNIGHT: acetaminophen [Tylenol Extra Strength] 2 tab PO QAM (okay to take up to 4 hours prior to surgery if needed) pravastatin 40 mg PO QAM aspirin 81 mg PO QAM (continue as normal unless told otherwise by surgeon) Take evening before surgery metformin 500 mg tablet 1,000 mg PO BID sildenafil 100 mg tablet 100 mg PO DAILY PRN (if needed) alprostadil [Mitchell] 1,000 mcg UR UD PRN (if needed) Other Notes If you have any questions please call us at [phone] or [phone] or [phone] or [phone]
--- NOTE | 2020-10-29 14:07 | Anesthesiology Consultation ---
Date of Service October 29, 2020 Assessment & Plan (1) Encounter for pre-operative examination: COVID Status: As of 10/29 assessment, patient denies travel to endemic area, known exposure/sick contacts, or symptoms of COVID19. Patient instructed that they and their household members must follow strict social distancing guidelines, wear a mask in public and avoid travel/events/gatherings for 14 days prior to surgery. Preoperative COVID19 testing to be completed prior to surgery per surgeon's arrangements. Patient made aware to self-isolate as much as possible between COVID testing and surgery. Pt is fully vaccinated. Pt reports vertigo with laying flat and requests HOB be at least slightly elevated if possible (if not possible intra-operatively, at least pre and post- op). BSG AM DOS Chart Review Chart Review: Acceptable Risk for Surgery and Patient seen in Pre Admission Testing Teaching & Discussion Instructed NPO after midnight before surgery, except medications with 15 cc of water. Medication instructions provided according to the PAT guidelines. History Surgery Operation Date: 11/27/20 07:15 Proposed Procedures p Right Total Hip Arthroplasty Uncemented - Stu Banda MD Height/Weight Height: 5 ft 5 in Weight: 96.1 kg Allergies Allergy/AdvReac Type Severity Reaction Status Date / Time amoxicillin Allergy Mild Nausea Verified 10/27/20 13:25 latex Allergy Mild RASH Verified 10/27/20 13:25 Medications Home Medications Medication Instructions Recorded Confirmed Last Taken Calcium 600 + D(3) 1 cap PO QAM 04/17/18 10/27/20 Unknown acetaminophen [Tylenol Extra 2 tab PO QAM 04/17/18 10/27/20 04/24/18 Strength] ascorbic acid (vitamin C) [Vitamin 1 tab PO DAILY 04/17/18 10/27/20 04/24/18 C] aspirin 81 mg PO QAM 04/17/18 10/27/20 04/23/18 multivitamin [Multiple Vitamins] 1 tab PO QAM 04/17/18 10/27/20 04/24/18 naproxen sodium [Aleve] 440 mg PO QPM 04/17/18 10/27/20 04/23/18 vitamin B complex 1 cap PO QAM 04/17/18 10/27/20 04/24/18 blood sugar diagnostic #10 ea 03/20/19 03/18/20 Unknown lancets #50 ea 03/20/19 09/22/20 Unknown triamcinolone acetonide 0.1 % 1 appln TOP BID PRN 03/21/19 10/27/20 Unknown topical cream metformin 500 mg tablet 1,000 mg PO BID #360 tab 03/19/20 10/27/20 Unknown sildenafil 100 mg tablet 100 mg PO DAILY PRN #10 tab 09/02/20 10/27/20 Unknown Eye Promise Restore 1 tab PO QAM 10/27/20 10/27/20 Unknown alprostadil [[place]] 1,000 mcg UR UD PRN 10/27/20 10/27/20 Unknown naproxen-diphenhydramine [Naproxen 2 tab PO HS 10/27/20 10/27/20 Unknown PM] pravastatin 40 mg PO QAM 10/27/20 10/27/20 Unknown ramipril 5 mg PO QAM 10/27/20 10/27/20 Unknown Past Medical History Medical History Actinic keratosis Arthritis Chronic hoarseness Diabetes NIDDM GERD (gastroesophageal reflux disease) hx - no recent problems HTN (hypertension) Hyperlipidemia Pancreatic cyst monitoring Prostate cancer unsure of the timeframe "a while ago" Exercise / Class Metabolic Activity II 4-5 Yardwork/Stairs/Walk up hill (Denies CP or SOB with 1 FOS but has not done for a while, limited by hip pain) Past Family History Family History Father Prostate cancer Other No family history of adverse response to anesthesia Denies family history of Ovarian cancer Breast cancer Lung cancer Colorectal cancer Past Surgical History Surgical History H/O exploratory laparotomy ? SBO History of bilateral knee replacement History of colonoscopy History of prostatectomy History of rhinoplasty History of tooth extraction Past Anesthesia History No Hx of Anesthesia Complications and No Family Hx of Anesthesia Complications History of PONV No Hx of PONV and Hx of Motion Sickness Social History Smoking Status: Former smoker Do You Dip or Chew Tobacco: No Smoking End Date: 1979 Hx Alcohol Use: No Hx Substance Use: No substance use type: does not use Review of Systems Pt denies any recent chest pain, shortness of breath, palpitations, cough, fever, URI, or uncontrolled acid reflux. Physical Exam Vital Signs BP: 134/85 P: 70bpm SPO2: 96% RA T: 98.7 F R: 16 Constitutional + obese ENMT Mouth: + macroglossia; no dental restorations, no chipped teeth and no loose teeth Thyromental Distance: > or= 3.5 Finger Breadths Mallampati Class: III Neck + facial hair (large bushy bauer, pt advised to trim); neck extension not limited Respiratory normal respiratory effort, lungs clear to auscultation Cardiovascular RRR, no murmur, no edema Lab Results Anesthesia Preop Results Results Anesthesia Widget: HA1c 7.4 % (4.5-5.6) H 09/21/20 Testing Laboratory Results 10/29/20 14:24 10/29/20 14:24 PT 9.8 Seconds (9.0-12.0) 10/29/20 14:24 INR 1.0 (0.9-1.1) 10/29/20 14:24 APTT 23.9 Seconds (21.0-31.0) 10/29/20 14:24 Blood Type O Positive 10/29/20 14:24 Antibody Screen NEGATIVE 10/29/20 14:24 Electrocardiogram Date: 10/29/20 Findings: + NSR @ (67bpm) and + no change from (2016) With 1st degree AV-block. Chest X-Ray Date: 10/29/20 Findings: + NAD and + cardiomegaly
--- NOTE | 2020-10-29 14:43 | XRay Report ---
XR chest Pre-admission PA/Lat CLINICAL HISTORY: Preoperative evaluation. COMPARISON STUDY: Chest radiograph October 25, 2018. FINDINGS: Lung volumes are at the upper limits of normal. There is no pneumothorax or effusion. Note is made of mild to moderate cardiomegaly. There is no evidence for pulmonary edema or pneumonia. A hi atal hernia is present. IMPRESSION: No acute cardiopulmonary findings. Cardiomegaly. ACT 112: Negative or not required by law. Electronically signed by: Ian Ray M.D. 10/29/2020 2:42 PM
[2020-10-29 14:49] LABS: Basophils # (auto) 0.02 K/uL (0-0.2); Basophils % (auto) 0.3 %; Eosinophils # (auto) 0.08 K/uL (0-0.5); Eosinophils % (auto) 1.3 %; Hematocrit (blood only) 39.3 % (42-52); Hemoglobin 13.4 g/dL (14.0-18.0); Immature Granulocytes # (auto) 0.02 K/uL (0.00-0.02); Immature Granulocytes % (auto) 0.3 %; Mean Corpuscular Hemoglobin 30.7 pg (25-34); Mean Corpuscular Hgb Conc 34.1 g/dL (32-36); Mean Corpuscular Volume 89.9 fL (80-100); Mean Platelet Volume 9.9 fL (7.4-10.4); Monocytes # (auto) 0.61 K/uL (0.11-0.59); Monocytes % (auto) 9.9 %; Neutrophils # (auto) 3.34 K/uL (1.4-6.5); Neutrophils % (auto) 54.2 %; Platelet Count 255 K/uL (130-400); RDW Coefficient of Variation 12.5 % (11.5-14.5); RDW Standard Deviation 41.2 fL (36.4-46.3); Red Blood Count 4.37 M/uL (4.7-6.1); White Blood Count 6.17 K/uL (4.8-10.8)
[2020-10-29 14:57] LABS: BUN Creatinine Ratio 16.1 (10-20); C Reactive Protein 1.19 mg/dl (0-0.29); Calcium 9.6 mg/dl (8.5-10.1); Creatinine Clr Calc Pharmacy 60.7 ml/min; Est GFR (African American) 74.1; Est GFR (Non-African American) 63.9; Potassium 4.5 mmol/L (3.5-5.1)
[2020-10-29 15:01] LABS: Partial Thromboplastin Ratio 0.9; Partial Thromboplastin Time 23.9 Seconds (21.0-31.0); Prothrombin Time 9.8 Seconds (9.0-12.0)
--- NOTE | 2020-10-29 15:53 | Electrocardiogram Report ---
Test Reason : Blood Pressure : / mmHG Vent. Rate : 067 BPM Atrial Rate : 067 BPM P-R Int : 204 ms QRS Dur : 094 ms QT Int : 398 ms P-R-T Axes : 000 039 005 degrees QTc Int : 420 ms Normal sinus rhythm with 1st degree A-V block Otherwise Normal ECG When compared with ECG of 08-JUN-2016 09:51, No significant change was found Confirmed by Len Szymanski ([id number]) on 10/29/2020 3:53:12 PM Referred By: Stu Banda Confirmed By:Len Szymanski
--- NOTE | 2020-11-21 19:32 | History and Physical Report ---
DATE OF ADMISSION: 11/27/2020 CHIEF COMPLAINT: Right hip pain. HISTORY OF PRESENT ILLNESS: The patient is a 75-year-old gentleman well known to me from previous knee replacements. He now presents for surgical treatment of his right hip. He has got a several year history of increasing right hip pain and discomfort. It has gotten significantly worse over the past year. He describes groin pain and thigh pain radiating down to his knee. He limps more as the day goes on. He takes Aleve with minimal relief. It is limiting his ability to get around and he does not want to wait any longer and wants to have his hip fixed. PAST MEDICAL HISTORY: Significant for, 1. Diabetes with an A1c of 7.4. 2. Hypertension. 3. Mild obesity. 4. Low back pain. PAST SURGICAL HISTORY: Include, 1. Bilateral knee replacements. 2. Prostate surgery. ALLERGIES: LATEX AND AMOXICILLIN. CURRENT MEDICINES: Include, 1. Tylenol. 2. Alprostadil. 3. Vitamin C. 4. Aspirin. 5. Calcium. 6. Clindamycin before dental appointments. 7. Metformin. 8. Multivitamin. 9. Naproxen. 10. Pravastatin. 11. Ramipril. 12. Sildenafil. 13. Triamcinolone. 14. Vitamin B. 15. Multivitamin. SOCIAL HISTORY: A 75-year-old male. He is . Does not smoke. No significant alcohol intake. FAMILY HISTORY: Noncontributory. REVIEW OF SYSTEMS: Significant for long-term diabetes. Denies any chest pain or shortness of breath. No history of DVT or PE. No known bleeding problems. PHYSICAL EXAMINATION: GENERAL: Shows a pleasant elderly male. Looks to be in pretty good health. HEENT: Benign. NECK: Supple, no lymphadenopathy. LUNGS: Clear to auscultation. HEART: Has a regular rate and rhythm. ABDOMEN: Soft, nontender, nondistended. EXTREMITIES: Grossly neurovascularly intact except as follows: Examination of the right hip reveals the patient walks with a little bit of a hunched over posture. Leg lengths appear pretty equal. He has got a pretty stiff hip with internal rotation to neutral at best, but this recreates his pain. His knee incisions healed distally. There is no swelling in his knee. He is neurologically intact. X-RAYS: X-rays of the right hip reveal advanced right hip DJD. He has got fairly concentric disease with mostly medial cartilage wear. He has got osteophytes around the femoral head. He still has some superior joint space remaining. ASSESSMENT: A 75-year-old male with several medical issues including long-term diabetes, hypertension, obesity, status post bilateral knee replacements with right hip degenerative joint disease. It has progressed to the point where it is limiting his activities and he would just like to have his hip fixed. PLAN: We are going to take him to the operating room and do a right total hip replacement. The risks and benefits of this procedure were explained to the patient including but not limited to DVT, PE, , infection, neurological injury, vascular injury, bleeding problem, pain, limited range of motion, stiffness, failure to relieve his symptoms, incomplete relief of symptoms, fracture, leg length inequality, nerve palsy, need for blood transfusion. The patient understands and desires to proceed. Informed consent was obtained. As far as discharge plans, he is planning to be discharged to home using [facility] home health program. We will make sure we hold his metformin on the morning of surgery.
[2020-11-27] MEDS ORDERED: ACETAMINOPHEN 500 MG TAB PO SCH (06:00)
[2020-11-27] MEDS ORDERED: METOCLOPRAMIDE HCL 10 MG TABLET PO SCH (06:00)
[2020-11-27] MEDS ORDERED: LR 500ML BOLUS, THEN 15ML/HR IV SCH (06:00)
[2020-11-27] MEDS ORDERED: ceFAZolin 2000MG 2,000 MG/15 ML SYR IV SCH (06:00)
[2020-11-27] MEDS ORDERED: FAMOTIDINE 20 MG TAB PO SCH (06:00)
[2020-11-27] MEDS ORDERED: TRANEXAMIC ACID 1,000 MG **IV Pre-op IV SCH (06:00)
[2020-11-27] MEDS ORDERED: GABAPENTIN 300 MG CAP PO SCH (06:00)
[2020-11-27] MEDS ORDERED: LR 60ML/HR IV SCH (06:00)
[2020-11-27] MEDS ORDERED: BUPIVACAINE 0.5 % 5 MG/1 ML PF 10ML VIAL ONE (06:24)
[2020-11-27] MEDS ORDERED: LIDOCAINE 2% 2 ML VIAL/AMP(20MG/ML) INFIL ONE (06:36)
[2020-11-27] MEDS ORDERED: PROPOFOL IV EMULSION 10 MG/ML 20 ML VIAL IV ONE ×2 (06:36→10:11)
[2020-11-27] MEDS ORDERED: BUPIVACAINE/EPINEPHRINE 0.5% MPF 1:200,000 30 ML VIAL ONE (06:37)
[2020-11-27] MEDS ORDERED: fentaNYL citrate 100 MCG/2 ML VIAL ONE (06:37)
[2020-11-27] MEDS ORDERED: MIDAZOLAM HCL 1 MG/ML 2ML VIAL ONE (06:37)
--- NOTE | 2020-11-27 06:50 | History & Physical Bridge Note ---
Date of Service November 27, 2020 History & Physical Bridge Note I have examined the patient, reviewed the History & Physical and in the interval since the performance of the History & Physical I have noted the following changes of clinical significance: no changes noted
[2020-11-27] MEDS ORDERED: MoRPHine SULFATE PF 1 MG/ML 10 ML AMP/VIAL ONE (06:56)
--- NOTE | 2020-11-27 09:03 | Operative Report ---
Post Operative Report Pre & Post Diagnosis Operation Date: 11/27/20 07:00 Pre-Op Diagnosis: Right Hip Advanced Degenerative Joint Disease Post-Op Diagnosis: Right Hip Advanced Degenerative Joint Disease I identified the patient and participated in the time-out.: Yes Procedure Operation Date: 11/27/20 07:00 Actual Procedures p Right Total Hip Arthroplasty--Uncemented(Right) - Stu Banda MD Surgeon Stu Banda MD [place] [employer] GUTIERREZ Adams Estimated Blood Loss 200 Findings Consistent with Post-Op Diagnosis Fluids 1200 cc Specimens Right femoral head sent for pathology. Drains None Anesthesia Type Spinal MAC Complications none Disposition Accompanied Patient To Recovery: Yes Disposition: Recovery Room Indications Patient is 75-year-old gentleman well-known to me from previous of bilateral knee replacements. Over the past several years he developed increased right hip pain discomfort. He failed all conservative measures. Is really started affect his ability to maintain an active lifestyle. A x-ray showed fairly central but at advanced hip arthritis. He elected proceed with surgical treatment. Description of Procedure Operative implants consist of: 1. Biomet G7 size 54 mm acetabular shell. 2. 6.5 cancellous acetabular screws 1 of 35 mm length 130 mm length. 3. Garrett hole eliminator. 4. Highly cross-linked polyethylene liner with a 54 mm outer diameter, 36 mm inner diameter with a medrano placed inferior and posterior. 5. DePuy karate size 10 KLA femoral stem. 6. +5/36 mm ceramic articular ball. The patient was taken to the operating, identified, placed on the operating table supine position but all contact areas were properly padded. IV antibiotics tried by anesthesia team. A spinal anesthetic been implemented holding area. Mendez catheter was placed in sterile fashion. Patient was then placed in the left lateral cubitus position. Axillary roll was placed. A Stulberg hip positioner was used for positioning. The right hip and leg were then prepped and draped in usual sterile fashion. A posterior lateral approach to the right hip was then performed to a curvilinear incision centered over the greater trochanter. Sharp dissection got through subcutaneous tissue down below the IT band gluteal fascia the IT band gluteal fascia then incised longitudinally in line with skin incision. The greater trochanter bursa was excised. The piriformis and external rotators tears in the posterior capsule were then released from the posterior aspect hip joint as a single layer. Hip was internally rotated and dislocated. Femoral neck osteotomy cut was made with Final Cut about 12 mm above the lesser trochanter. Femoral head was removed and sent for further pathology. The femur was retracted anteriorly. Attention drawn the acetabulum. The acetabular labrum was excised. The pulmonary fat was excised. Sequential reaming the acetabular was then performed again with a size 45 and progressing up to 53. I did reamed a little bit with a 54 reamer and then placed a 54 mm Biomet G7 acetabular shell. This was placed in about 20 degrees of anteversion and 40 degrees lateral opening. I did place a little bit less anteversion as he has seemed to have more of an external rotation hip contracture and I was concerned a little bit more with anterior instability in this patient. A trial liner was placed. Attention drawn the femur. The proximal femur was entered with a cookie-cutter followed by canal finder. I then broached begin the size 8 and progressing up to a 10. We initially did start to broach with an 11 but it was extremely tight in the diaphysis and we remove this immediately. We will place the 10 broach and still fit quite snug without great rotational control. The calcar reamer was used smooth and off the calcar. I then trialed the hip and the +5 articular ball provide full stability in full extension and external rotation flexion to 9 degrees internal rotation over 40 degrees. I did elect to place a medrano inferior and posterior to maximize his stability in flexion. We elect to place these implants. All trial implants were removed. An apex hole senior military analyst was placed but highly cross-linked polyethylene liner with a medrano placed inferior and posterior was then placed. A DePuy size 10 KLA femoral stem was impacted in position. +5/36 mm ceramic articular ball was placed. Hip was a little bit tight in extension but patient had a quite a bit of offset and I did not want to shorten this any more. Attention drawn toward closing. The wounds irrigated copious small pulsatile lavage solution. I did inject locally with 60 cc of half percent Marcaine with epinephrine. The posterior capsule and external rotators were then repaired through drill holes in the posterior trochanter with #2 Tycron suture as a single layer. The IT band gluteal fascia then closed in 1 PDS suture in running fashion for subcutaneous tissues then closed with 2 layers with deep layer #1 Vicryl suture and subcutaneous tissues with 2-0 Dexon suture in a buried interrupted fashion the skin was closed skin jose. Legs then cleaned dried a sterile dressing both Xeroform, 4 x 4's, ABD pad, foam tape was applied. The patient transferred to the recovery room in stable condition. Patient tolerated procedure well and there were no complications. Jeffrey Adams, my physician animal care assistant, was present for the entire procedure. His assistance was essential and required for appropriate patient positioning, prepping and draping, surgical exposure, performing the technical details of the operation, placement the implants, closure of the wound, and placement of the sterile bandage. 5. I attest to the content of the Intraoperative Record and any orders documented therein. Any exceptions are noted below.
[2020-11-27] MEDS ORDERED: MoRPHine SULFATE PF 1 MG/ML 10 ML AMP/VIAL INT SPINAL ONE (09:14)
[2020-11-27] MEDS ORDERED: NALOXONE HCL 1 MG in SODIUM CHLORIDE 0.9% 1000ML 1,000 ML IV PRN (09:14)
[2020-11-27] MEDS ORDERED: diphenhydrAMINE 50 MG/ML VIAL IV PRN (09:14)
[2020-11-27] MEDS ORDERED: ePHEDrine sulfate 50 MG/ML AMP IV PRN (09:14)
[2020-11-27] MEDS ORDERED: LACTATED RINGER'S 500 ML IV PRN (09:14)
[2020-11-27] MEDS ORDERED: NALOXONE HCL 0.08 MG in SYRINGE 1.8 ML IV PRN (09:14)
[2020-11-27] MEDS ORDERED: NALOXONE HCL 0.4 MG/1 ML VIAL/CARP IV PRN (09:14)
[2020-11-27] MEDS ORDERED: HYDROmorphone INJ 0.5 MG/0.5 ML SYR IV PRN (09:14)
[2020-11-27] MEDS ORDERED: SODIUM CHLORIDE 0.9% 1000ML 1,000 ML IV SCH (09:15)
[2020-11-27] MEDS ORDERED: NO NARCOTICS OR SEDATIVES SCH (09:15)
[2020-11-27] MEDS ORDERED: DC INTRASPINAL MORPHINE SCH (09:15)
--- NOTE | 2020-11-27 09:37 | XRay Report ---
SINGLE VIEW PELVIS; SINGLE VIEW RIGHT HIP CLINICAL HISTORY: Postoperative examination. FINDINGS: An AP portable view of the hips and pelvis with a crosstable lateral portable view of the r ight hip are obtained. A bipolar right hip arthroplasty is in near-anatomic alignment at least 2 cor tical lag screws transfix the acetabular cup. No acute fracture is identified. Subcutaneous gas and s oft tissue swelling overlying the right hip are expected postoperative findings. Surgical clips are s een throughout the pelvis. Pelvic phleboliths are noted. There is atherosclerotic calcification of th e femoral arteries. A Mendez catheter is in place. IMPRESSION: Expected postoperative findings status post right hip arthroplasty. No acute fracture is seen. ACT 112: Negative or not required by law. Electronically signed by: Charly Trinidad M.D. 11/27/2020 9:35 AM
[2020-11-27] MEDS ORDERED: TRIAMCINOLONE ACET 0.1% CR 15 GM TUBE TOP PRN (10:09)
[2020-11-27] MEDS ORDERED: ALPROSTADIL UR PRN (10:09)
[2020-11-27] MEDS ORDERED: bisacodyL 10 MG SUPP PR PRN (10:09)
[2020-11-27] MEDS ORDERED: MAGNESIUM HYDROXIDE SUSP 30 ML UDC PO PRN (10:09)
[2020-11-27] MEDS ORDERED: MULTIVITAMIN TAB PO SCH (10:09)
[2020-11-27] MEDS ORDERED: ALUMINUM/MAGNESIUM SUSP 30 ML UDC PO PRN (10:09)
[2020-11-27] MEDS ORDERED: EYE PROMISE RESTORE PO SCH (10:09)
[2020-11-27] MEDS ORDERED: NON-FORMULARY MEDICATION (Sildenafil 100 mg tablet) PO PRN (10:09)
[2020-11-27] MEDS ORDERED: TAMSULOSIN HCL 0.4 MG CAP PO PRN (10:09)
[2020-11-27] MEDS ORDERED: NON-FORMULARY MEDICATION (Ascorbic Acid (Vitamin C) [Vitamin C] 1,000 mg Tablet) PO SCH (10:09)
[2020-11-27] MEDS ORDERED: PHENYLEPHRINE 100MCG/ML 5ML SYR ONE (10:11)
[2020-11-27] MEDS ORDERED: ePHEDrine sulfate 50 MG/ML AMP ONE (10:11)
[2020-11-27] MEDS ORDERED: PHARMACY GLYCEMIC MGMT CONSULT PRN (10:21)
[2020-11-27] MEDS ORDERED: CARBOHYDRATES FOR HYPOGLYCEMIA PO PRN ×2 (10:30→11:02)
[2020-11-27] MEDS ORDERED: GLUCOSE 40% GEL 15 GM TUBE PO PRN ×2 (10:30→11:02)
[2020-11-27] MEDS ORDERED: LANTUS PER UNIT CHARGE SQ ONE (10:30)
[2020-11-27] MEDS ORDERED: GLUCOSE 10 TABS/TUBE PO PRN ×2 (10:30→11:02)
[2020-11-27] MEDS ORDERED: DEXTROSE 50% 50 ML SYRINGE IV PRN ×2 (10:30→11:02)
[2020-11-27] MEDS ORDERED: GLUCAGON FOR INJ 1 MG VIAL IM PRN (10:30)
[2020-11-27] MEDS: ONDANSETRON INJ 2 MG/ML 2 ML VIAL IV PRN ×3 (10:33→23:44)
--- NOTE | 2020-11-27 10:55 | Pharmacy Report ---
Pharmacy Glycemic Short Note 2 - Date of Service November 27, 2020 - Glycemic Short BSG Results (Last 24 hours): 11/27/20 11/27/20 05:28 08:55 POC Glucose 179 H 218 H OUTPATIENT ANTIDIABETIC REGIMEN: * Metformin 1gm PO BID * HbA1c: 7.4% (09/21/20) ASSESSMENT: * Mr Cadet is a 75yo diabetic male POD 0 s/p R total hip with Dr Banda this morning. * It does not appear as though patient received any perioperative steroids today. He is ordered a diabetic diet post-op. * BSGs have been elevated today (179, 218). * Basal/bolus insulin initiated post-op until BSGs have resolved and PO meds may be resumed. PLAN FOR INPATIENT GLYCEMIC CONTROL: * Hold outpatient oral diabetes medications * If patient tolerates diet today, will plan to resume Metformin tomorrow morning. * Basal insulin * Lantus 20 units SQ x1 dose * Will evaluate the need for additional dose(s) tomorrow morning * Bolus insulin * NovoLog per scale ACHS or Q6hrs while NPO * Goal Range: Low 110 mg/dL - High 140 mg/dL * Correction Factor: 25 mg/dL/unit * Nutritional / Prandial insulin per carb ratio of 1 unit per 9 grams CHO consumed PLAN FOR DISCHARGE: * A1c: 7.4% * This indicates adequate glycemic control for a 75yo patient. Expect that pt may resume home regimen on discharge, as long as labs are appropriate and pt does not report having episodes of hypoglycemia.
[2020-11-27] MEDS ORDERED: GLUCAGON FOR INJ 1 MG VIAL SQ PRN (11:02)
[2020-11-27] MEDS: SODIUM CHLORIDE 0.9% 1000ML 1,000 ML IV SCH ×2 (11:06→20:40)
[2020-11-27] MEDS: MULTIVITAMIN TAB PO SCH (11:47)
[2020-11-27] MEDS: DOCUSATE SODIUM 100 MG CAP PO SCH ×2 (11:47→20:42)
[2020-11-27] MEDS: ASPIRIN 81 MG ECTAB PO SCH ×3 (11:47→20:45)
[2020-11-27] MEDS: KETOROLAC TROMETHAMINE 15 MG/ML VIAL IV SCH ×3 (11:50→23:44)
[2020-11-27] MEDS: PRAVASTATIN SOD 40 MG TAB PO SCH (11:58)
[2020-11-27] MEDS: VITAMIN B COMPLEX TAB PO SCH (11:58)
[2020-11-27] MEDS: ENALAPRIL MALEATE 10 MG TAB PO SCH (11:58)
[2020-11-27] MEDS: CALCIUM 600MG + VIT D 400 IU TAB PO SCH (11:58)
[2020-11-27] MEDS: INSULIN ASPART 100 UNITS/ML 3 ML PEN SC SCH ×3 (13:09→21:35)
--- NOTE | 2020-11-27 14:00 | Anesthesiology Progress Note ---
Date of Service November 27, 2020 Anesthesia Post Procedure Vital Signs Vital Signs: Temp Pulse Pulse Resp BP Pulse Ox 11/27/20 12:59 36.9 C 80 16 152/80 H 98 11/27/20 11:44 36.4 C L 86 18 125/70 98 11/27/20 10:39 36.4 C L 88 18 160/86 H 98 11/27/20 09:45 36.4 C L 89 18 167/82 H 98 11/27/20 09:25 36.6 C 90 16 154/78 H 97 11/27/20 09:15 97 H 14 161/82 H 94 11/27/20 09:05 99 H 14 154/79 H 96 11/27/20 08:55 91 H 16 150/77 H 100 11/27/20 08:47 36.8 C 95 H 16 147/65 H 100 11/27/20 05:45 36.7 C 103 H 18 172/94 H 97 Pain Intensity Right Hip: Pain Intensity: 2 Transfer of Care Handoff Completed per policy Notes Mental Status: alert / awake / arousable and participated in evaluation Patient Amnestic to Procedure: Yes Nausea / Vomiting: adequately controlled Pain: adequately controlled Airway Patency, RR, SpO2: stable & adequate BP & HR: stable & adequate Hydration State: stable & adequate Neuraxial Anesthesia: was administered and sensory block is resolving Anesthetic Complications: no major complications apparent and Pt Satisfied with anesthetic care
[2020-11-27] MEDS: ACETAMINOPHEN 500 MG TAB PO SCH ×2 (14:49→21:36)
[2020-11-27] MEDS: ceFAZolin 2000MG 2,000 MG/15 ML SYR IV SCH ×2 (14:50→23:44)
[2020-11-27] MEDS ORDERED: TRANEXAMIC ACID / 0.7% NACL 1,000 MG/100 ML BAG IV SCH (14:51)
[2020-11-27] MEDS: ASCORBIC ACID 500 MG TAB PO SCH (17:57)
[2020-11-27] MEDS ORDERED: SENNA 8.6 MG TAB PO SCH (21:00)
[2020-11-28] MEDS: ACETAMINOPHEN 500 MG TAB PO SCH ×2 (05:34→13:15)
[2020-11-28] MEDS: KETOROLAC TROMETHAMINE 15 MG/ML VIAL IV SCH (05:34)
[2020-11-28 06:11] LABS: Basophils # (auto) 0.01 K/uL (0-0.2); Basophils % (auto) 0.1 %; Eosinophils # (auto) 0.01 K/uL (0-0.5); Eosinophils % (auto) 0.1 %; Hematocrit (blood only) 36.4 % (42-52); Hemoglobin 12.5 g/dL (14.0-18.0); Immature Granulocytes # (auto) 0.02 K/uL (0.00-0.02); Immature Granulocytes % (auto) 0.2 %; Lymphocytes # (auto) 1.37 K/uL (1.2-3.4); Mean Corpuscular Hemoglobin 31.3 pg (25-34); Mean Corpuscular Hgb Conc 34.3 g/dL (32-36); Mean Corpuscular Volume 91.2 fL (80-100); Mean Platelet Volume 9.9 fL (7.4-10.4); Monocytes # (auto) 0.99 K/uL (0.11-0.59); Monocytes % (auto) 10.8 %; Neutrophils # (auto) 6.73 K/uL (1.4-6.5); Neutrophils % (auto) 73.8 %; Platelet Count 213 K/uL (130-400); RDW Coefficient of Variation 12.7 % (11.5-14.5); RDW Standard Deviation 42.5 fL (36.4-46.3); Red Blood Count 3.99 M/uL (4.7-6.1); White Blood Count 9.13 K/uL (4.8-10.8)
[2020-11-28 06:48] LABS: BUN Creatinine Ratio 13.4 (10-20); Calcium 8.6 mg/dl (8.5-10.1); Est GFR (African American) 68.8 ml/min; Est GFR (Non-African American) 59.4 ml/min
[2020-11-28] MEDS: CALCIUM 600MG + VIT D 400 IU TAB PO SCH (07:39)
[2020-11-28] MEDS: DOCUSATE SODIUM 100 MG CAP PO SCH (07:39)
[2020-11-28] MEDS: ASCORBIC ACID 500 MG TAB PO SCH (07:39)
[2020-11-28] MEDS: ENALAPRIL MALEATE 10 MG TAB PO SCH (07:40)
[2020-11-28] MEDS: ASPIRIN 81 MG ECTAB PO SCH (07:40)
[2020-11-28] MEDS: MULTIVITAMIN TAB PO SCH (07:40)
[2020-11-28] MEDS: PRAVASTATIN SOD 40 MG TAB PO SCH (07:40)
[2020-11-28] MEDS: VITAMIN B COMPLEX TAB PO SCH (07:40)
[2020-11-28] MEDS ORDERED: LANTUS PER UNIT CHARGE SQ ONE (08:15)
--- NOTE | 2020-11-28 08:29 | Progress Notes ---
DATE: 11/28/2020 SUBJECTIVE: A 75-year-old gentleman postop day 1 from right hip replacement. He is doing much better this morning. The nausea has cleared up. No chest pain or shortness of breath. Not feeling dizzy or lightheaded. He did not get much sleep last night. OBJECTIVE: VITAL SIGNS: Temperature is 36.9. Vital signs stable. GENERAL: Shows a pleasant elderly male. He is sitting up in bed and looks quite good this morning. LUNGS: Clear to auscultation. HEART: Has a regular rate and rhythm. ABDOMEN: Soft, nontender, nondistended. EXTREMITIES: Grossly neurovascularly intact except as follows: Examination of the right hip and leg reveals his leg lengths to be equal. Dressing is clean, dry, and intact. Hip is located. Thigh is soft and supple. He is neurologically intact. LABORATORY DATA: Hemoglobin 12.5. Hematocrit 36.4. Electrolytes are stable. ASSESSMENT: A 75-year-old gentleman postop day #1 from right hip replacement, doing pretty well. Pain is controlled. The nausea is resolved. Hip is located. He is neurologically intact. PLAN: 1. DVT prophylaxis including thigh-high TEDs, SCDs, and aspirin twice a day. 2. PT/OT. Weight bear as tolerated. Right total hip protocol. 3. Pain control, doing well with current pain regimen. 4. Disposition: Plan to discharge to home with some home health once adequately recovered and medically stable. We will see how he does in therapy today.
[2020-11-28] MEDS ORDERED: traMADol HCL 50 MG TABLET PO PRN (09:15)
[2020-11-28] MEDS ORDERED: ONDANSETRON INJ 2 MG/ML 2 ML VIAL IV PRN (09:15)
[2020-11-28] MEDS ORDERED: METOCLOPRAMIDE HCL INJ 5 MG/ML 2 ML VIAL IV PRN (09:15)
[2020-11-28] MEDS ORDERED: HYDROmorphone INJ 0.5 MG/0.5 ML SYR IV PRN (09:15)
[2020-11-28] MEDS ORDERED: NALOXONE HCL 0.4 MG/1 ML VIAL/CARP IV PRN (09:15)
[2020-11-28] MEDS: INSULIN ASPART 100 UNITS/ML 3 ML PEN SC SCH ×2 (09:25→13:10)
[2020-11-28] MEDS ORDERED: metFORMIN HCL 500 MG TAB PO SCH (17:00)
--- NOTE | 2020-12-02 06:27 | Discharge Summary ---
Date of Service December 02, 2020 Discharge Data Procedures Performed Operation Date: 11/27/20 07:00 Actual Procedures p Right Total Hip Arthroplasty--Uncemented(Right) - Stu Banda MD Hospital Course (1) Status post total hip replacement, right: This patient is a 75 year old admitted on 11/27/20 and underwent total hip arthroplasty. He tolerated the procedure well and there were no complications. Transferred to the PACU post op and later to the orthopedic floor for further care. He was given ancef for antibiotic prophylaxis. He was also given MARIA DEL CARMEN stockings, SCDs, and aspirin for DVT prophylaxis. Hemoglobin, hematocrit, and vital signs were monitored during his hospital stay and remained stable. Did not require any blood transfusions. There were no complications during his hospital stay. By post op day #1 the patient was tolerating a diabetic diet, pain was reasonably controlled with oral pain medicine, and he was participating in physical therapy. On post op day #1 the patient was discharged home and set up with home health care. He was given printed discharge instructions including prescriptions for extra strength tylenol, aspirin, and tramadol. Continue physical therapy, weight bearing as tolerated. Continue MARIA DEL CARMEN stockings. Follow up approximately 2 weeks post op or sooner if there are problems or concerns. Coding Level of Care Code None Diagnoses Status post total hip replacement, right Z96.641
== END 2020-11-28 15:48 | disposition home health service (06) ==
LOC: ASU 05:05 → 3E 05:05

== ENCOUNTER 2023-12-24 08:13 | Observation (INO) ==
--- NOTE | 2023-12-24 08:54 | Emergency Department Note ---
Impression & Plan Acute left-sided weakness, Hyperglycemia, HTN (hypertension) ED Provider Note ED Provider Note NAME: BEN ONEAL AGE:78 SEX: Male : 1945 ARRIVES VIA: Private vehicle INFORMANT: Patient ED PROVIDER(s): Kavitha Flynn DO CHIEF COMPLAINT: Left-sided weakness HPI: This is a 78-year-old male presents emerged part with at bedside due to concern for left-sided weakness. He states he noted last night while getting into bed to go to sleep his left leg seemed slightly weaker compared to his right. He states while he slept well he does recall that it was more difficult to roll over at night and he feels this is likely from the left lower extremity weakness. He states this morning he noticed significant difficulty trying to ambulate as it felt as though his left leg would not hold him up. He states he did stumble into furniture and fu however did not fall and was not injured this morning. No recent fall or change in activity. No recent leg swelling or increased pain. He denies any increased low back or left hip pain. He denies any change in medications. He denies any recent illness. No history of gout. He denies noting any pain along the lower extremities at all just a sense of weakness. His did get his walker for him and even while using the walker the left leg still felt very weak and he was concerned he would fall. Patient does take low-dose aspirin daily. He states he uses metformin to help control his blood sugars which have ranged between 125 and 150. PAST MEDICAL HISTORY:See Below PAST SURGICAL HISTORY:See Below FAMILY HISTORY:See Below SOCIAL HISTORY:See Below HOME MEDICATIONS:See Below ALLERGIES:See Below VITALS:See Below PHYSICAL EXAMINATION: GENERAL: alert, well appearing, well nourished, no distress, non-toxic EYE EXAM: normal conjunctiva, PERRL and EOM's grossly intact OROPHARYNX: no exudate, no erythema, lips, buccal mucosa, and tongue normal and mucous membranes are moist NECK: supple, no nuchal rigidity, no adenopathy, non-tender LUNGS: Clear to auscultation. Normal chest wall mechanics, no w/r/r HEART: no murmurs, S1 normal and S2 normal ABDOMEN: abdomen soft, non-tender, normo-active bowel sounds, no masses, no rebound or guarding. SKIN: no rashes, petechiae, orbruising UPPER EXTREMITIES: upper extremities are grossly normal. FROM, nml pulses b/l. LOWER EXTREMITIES: No pitting edema. FROM, nml pulses b/l. Increased drift when holding left lower extremity up compared to the right. He states slight sense of increased numbness in the left lower extremity. NEURO EXAM: Normal sensorium, cranial nerves II-XII grossly intact, normal speech, no facial droop,nogross weakness of arms, no gross weakness of legs. Gross sensation intact. Mild left lower extremity ataxia. NIHSS 2 Vital Signs: reviewed and remarkable Differential Diagnosis: X-ray Chest: A single view study of the chest was reviewed and was negative for cardiomegaly, focal infiltrate, effusion, pulmonary edema, or wide mediastinum. MEDICAL DECISION MAKING: This is a 78-year-old male presents emerged part due to concern for left leg weakness which began last night as he was going to bed. Patient did have mild left lower extremity weakness on exam. He was afebrile vital signs stable. Labs drawn and sent, IV established, EKG performed at bedside interpreted me and patient monitored on telemetry. Patient started on gentle IV fluids and sent for CT/CTA. CT angiography did reveal moderate stenosis and concern for increased risk of CVA. Patient with diabetes, high blood pressure and high cholesterol additionally. I do feel patient would benefit from additional evaluation for CVA. I discussed this with patient and at bedside, they verbalized understanding of all results and were in agreement with the plan. Case discussed with the hospitalist team for additional evaluation and management. Aspirin ordered for the patient. In consideration of stroke, patient was outside the window for TNK, and given no obvious LVO on CT/CTA after almost 12 hours, did not feel he required urgent transfer. Consultation(s): 1058: Discussed with Dr. Blair, [facility] hospitalist, for additional evaluation and management. ER Treatment Provided: See below Diagnostics Interpreted By Me: -ECG: Normal sinus at 67 with first-degree AV block, normal axis, normal intervals, no acute ST/T wave changes -Cardiac Monitoring: An order was placed for continuous cardiac monitoring. The monitor shows a rate of 72 with normal sinus rhythm. -Laboratory studies: As stated above and show below. -Imaging studies: CT head: no ICH Triage Nursing Note Reviewed Prior/Outside Records Reviewed -prior discharge summary reviewed Past Med/Surg History Problem List Hyperglycemia (Acute) Acute left-sided weakness (Acute) Right ankle pain Status post total hip replacement, right Prostate cancer (Acute) Colon cancer screening Pancreatic cyst Abnormality of gait and mobility (Chronic) Decreased hearing of both ears (Chronic) Degenerative joint disease of right hip Erectile dysfunction HTN (hypertension) (Chronic) Diabetes (Chronic) NIDDM Arthritis (Acute) Hyperlipidemia History of bilateral knee replacement Medical History Right ankle pain Pancreatic cyst Prostate cancer Actinic keratosis Chronic hoarseness GERD (gastroesophageal reflux disease) Hyperlipidemia Arthritis Diabetes HTN (hypertension) Surgical History History of hip replacement History of bilateral knee replacement History of colonoscopy History of prostatectomy H/O exploratory laparotomy History of tooth extraction History of rhinoplasty Family History Father Prostate cancer Brother Parkinson's disease Cancer Other No family history of adverse response to anesthesia Denies family history of Ovarian cancer Myocardial infarction Breast cancer Lung cancer Colorectal cancer Social History Smoking Status: Smoker, status unknown Tobacco Type: Cigarettes Age Started Using Tobacco: 16; Age Quit Using Tobacco: 30; packs per day: 1; Second Hand Exposure: No; Do You Dip or Chew Tobacco: No; Hx Alcohol Use: No Hx Substance Use: No Preferred Language: Palestinian Communication Ability: Effective Visual Impairment: Limited Hearing Ability: Normal Secondary History Teacher Required: No Beliefs That Will Affect Care: None marital status: Current Living Situation: Spouse Current Living Situation Comment: current occupational status: retired How many Children do You have: 3 Feels Safe at Home: Yes Childhood Exposure to Second-Hand Smoke: Yes caffeine: Yes Dental Care, Regularly: Yes Physical Activity Frequency: Does not Exercise Seatbelt Use: always Sunscreen Use: No (rarely goes out) Assistive Devices: Glasses Allergies Allergies Allergy/AdvReac Type Severity Reaction Status Date / Time amoxicillin Allergy Mild Nausea Verified 12/24/23 11:11 latex Allergy Mild RASH Verified 12/24/23 11:11 adhesive tape AdvReac Mild redness to Verified 12/24/23 11:11 skin Home Meds Home Medications Medication Instructions Recorded Confirmed ascorbic acid (vitamin C) 1,000 mg 1 tab PO DAILY 04/17/18 12/24/23 tablet (Vitamin C) calcium carbonate 600 mg-vitamin 1 cap PO QAM 04/17/18 12/24/23 D3 5 mcg (200 unit) capsule (Calcium 600 + D(3)) multivitamin (Multiple Vitamins 1 tab PO QAM 04/17/18 12/24/23 tablet) vitamin B complex 1 cap PO QAM 04/17/18 12/24/23 blood sugar diagnostic (OneTouch #10 ea 03/20/19 08/08/23 Ultra Blue Test Strip) lancets (Preen.MeTouch UltraSoft #50 ea 03/20/19 08/08/23 Lancets) triamcinolone acetonide 0.1 % 1 appln topical BID PRN Skin 03/21/19 12/24/23 topical cream Irritation Eye Promise Restore 1 tab PO QAM 10/27/20 12/24/23 aspirin 81 mg tablet,delayed 81 mg PO DAILY 06/02/21 12/24/23 release (Adult Low Dose Aspirin) acetaminophen 500 mg tablet 1,000 mg PO QAM 02/01/22 12/24/23 (Tylenol Extra Strength) famotidine 20 mg tablet (Pepcid) 20 mg PO DAILY 12/13/23 12/24/23 metformin 500 mg tablet 1,000 mg PO BID 12/24/23 12/24/23 naproxen 220 mg-diphenhydramine 25 2 tab PO HS 12/24/23 12/24/23 mg tablet (Aleve PM) ramipril 5 mg capsule 5 mg PO QAM 12/24/23 12/24/23 Previous Rx's Medication Instructions Recorded pravastatin 40 mg tablet 40 mg PO QAM #90 tabs 08/08/23 sildenafil 100 mg tablet 100 mg PO DAILY PRN sexual 12/13/23 activity #10 tabs Results & Data (ED) Vital Signs Vital Signs - 24 hr 12/24/23 08:21 12/24/23 08:37 12/24/23 09:00 Temperature 36.8 C Temperature Source Oral Pulse Rate 100 H 87 Pulse Rate [Apical] 72 Respiratory Rate 20 18 Respiratory Effort / Characteristics Non-Labored Spontaneous Respiratory Depth Normal Blood Pressure 136/83 Blood Pressure [Left Arm] 153/88 H Blood Pressure Mean 100 Blood Pressure Mean [Left Arm] 109 Pulse Oximetry 97 98 Oxygen Delivery Method Room Air Room Air Sepsis Recent Fever Within 48 Hours No Sepsis New/Unexplained Change in Mental Status N/A Sepsis Action Taken by Nursing No Action Required 12/24/23 09:15 12/24/23 09:27 12/24/23 09:45 Temperature Temperature Source Pulse Rate Pulse Rate [Apical] 66 70 66 Respiratory Rate 14 16 12 Respiratory Effort / Characteristics Respiratory Depth Blood Pressure Blood Pressure [Left Arm] 159/87 H 162/87 H 144/69 H Blood Pressure Mean Blood Pressure Mean [Left Arm] 111 112 94 Pulse Oximetry 97 97 96 Oxygen Delivery Method Room Air Room Air Room Air Sepsis Recent Fever Within 48 Hours Sepsis New/Unexplained Change in Mental Status Sepsis Action Taken by Nursing 12/24/23 10:03 12/24/23 10:17 12/24/23 10:30 Temperature Temperature Source Pulse Rate Pulse Rate [Apical] 73 64 72 Respiratory Rate 14 14 16 Respiratory Effort / Characteristics Respiratory Depth Blood Pressure Blood Pressure [Left Arm] 147/72 H 136/73 147/72 H Blood Pressure Mean Blood Pressure Mean [Left Arm] 97 94 97 Pulse Oximetry 97 96 97 Oxygen Delivery Method Room Air Room Air Room Air Sepsis Recent Fever Within 48 Hours Sepsis New/Unexplained Change in Mental Status Sepsis Action Taken by Nursing 12/24/23 10:45 12/24/23 11:00 Temperature Temperature Source Pulse Rate Pulse Rate [Apical] 65 71 Respiratory Rate 15 13 Respiratory Effort / Characteristics Respiratory Depth Blood Pressure Blood Pressure [Left Arm] 140/69 148/78 H Blood Pressure Mean Blood Pressure Mean [Left Arm] 92 101 Pulse Oximetry 94 95 Oxygen Delivery Method Room Air Room Air Sepsis Recent Fever Within 48 Hours Sepsis New/Unexplained Change in Mental Status Sepsis Action Taken by Nursing Laboratory Data 12/24/23 08:35 12/24/23 08:35 Lab Results 12/24/23 12/24/23 12/24/23 Range/Units 08:35 08:37 10:06 WBC 7.43 (4.8-10.8) K/ul RBC 4.64 L (4.70-6.10) M/uL Hgb 14.1 (14.0-18.0) g/dl Hct 41.5 L (42.0-52.0) % MCV 89.4 (80.0-100.0) fL MCH 30.4 (25.0-34.0) pg MCHC 34.0 (32.0-36.0) g/dL RDW Std Deviation 41.1 (36.4-46.3) fL RDW Coeff of Lolly 12.5 (11.5-14.5) % Plt Count 238 (130-400) K/uL MPV 10.0 (9.4-12.4) fL Immature Gran % (Auto) 0.7 % Neut % (Auto) 44.7 % Lymph % (Auto) 40.1 % Lamar % (Auto) 11.0 % Eos % (Auto) 3.0 % Baso % (Auto) 0.5 % Neut # (Auto) 3.32 (1.40-6.50) K/uL Lymph # (Auto) 2.98 (1.20-3.40) K/uL Lamar # (Auto) 0.82 H (0.11-0.59) K/uL Eos # (Auto) 0.22 (0.00-0.50) K/uL Baso # (Auto) 0.04 (0.00-0.20) K/uL Immature Gran # (Auto) 0.05 (0.01-0.20) K/uL PT 10.3 (9.0-12.0) Seconds INR 0.9 (0.9-1.1) APTT 23 (21-31) Seconds PTT Ratio 0.9 Sodium 139 (136-145) mmol/L Potassium 4.2 (3.5-5.1) mmol/L Chloride 105 (98-107) mmol/L Carbon Dioxide 24 (21-32) mmol/L Anion Gap 10 (3-11) BUN 23 (6-23) mg/dl Creatinine 1.35 (0.6-1.4) mg/dl Est Cr Clr Drug Dosing 45.6 ml/min Est GFR ( Amer) 57.9 ml/min Est GFR (Non-Af Amer) 49.9 ml/min BUN/Creatinine Ratio 17.0 (10-20) Glucose 183 H (70-99(Fasting)) mg/dl POC Glucose 167 H (70-99) mg/dl Estimat Average Glucose 157 mg/dl Hemoglobin A1c 7.1 H (4.5-5.6) % Calcium 9.5 (8.6-10.3) mg/dl Magnesium 1.7 (1.7-2.4) mg/dl Total Bilirubin 0.5 (0.2-1.0) mg/dl AST 19 (13-39) U/L ALT 13 (7-52) U/L Alkaline Phosphatase 52 (34-104) U/L Troponin I High Sens 13.4 (0-20) pg/ml Total Protein 7.6 (6.0-8.3) gm/dl Albumin 4.3 (3.4-5.0) gm/dl Globulin 3.3 (2.5-4.0) gm/dl Albumin/Globulin Ratio 1.3 (0.9-2) Triglycerides 86 (0-150) mg/dl Cholesterol 176 (0-200) mg/dl LDL Cholesterol, Calc 86 mg/dl VLDL Cholesterol, Calc 17 (0-30) mg/dl HDL Cholesterol 73 mg/dl Cholesterol/HDL Ratio 2.4 (0-5) Vitamin B12 303 (180-914) pg/ml TSH 1.884 (0.300-4.500) uIu/ml Urine Color Dark Yellow Urine Appearance Clear (Clear) Urine pH 6.0 (4.5-7.5) Ur Specific [place] 1.042 H (1.000-1.030) Urine Protein 1+ H (Negative) Urine Glucose (UA) Negative (Negative) Urine Ketones Trace H (Negative) Urine Blood Negative (Negative) Urine Nitrite Negative (Negative) Urine Bilirubin Negative (Negative) Urine Urobilinogen Negative (Negative) Ur Leukocyte Esterase Negative (Negative) Urine WBC (Auto) 0-5 (0-5) /hpf Urine RBC (Auto) 0-2 (0-2) /hpf U Hyaline Cast (Auto) 0-2 (0-2) /lpf U Epithel Cells (Auto) 0-2 (0-2) /hpf Urine Bacteria (Auto) None Seen (None Seen) Administered Medications Sodium Chloride (Nss) 1,000 mls @ 125 mls/hr IV .Q8H LI Stop: 01/23/24 08:59 Last Admin: 12/24/23 15:28 Dose: 125 mls/hr Documented By: Infusion: 12/24/23 15:28 Dose: Infused Documented By: Admin: 12/24/23 09:18 Dose: 125 mls/hr Documented By: ALEXI Discontinued Medications Aspirin (Aspirin 325 Mg Ectab) 325 mg PO NOW STA Stop: 12/24/23 11:00 Last Admin: 12/24/23 11:31 Dose: 325 mg Documented By: ALEXI Ioversol (Optiray 320 125ml) 120 ml IV ONCE ONE Stop: 12/24/23 09:42 Last Admin: 12/24/23 09:41 Dose: 120 ml Documented By: PAMELA Imaging Data Radiologist's Impression: Head CT 12/24/23 08:51 CT OF THE HEAD WITHOUT CONTRAST CLINICAL HISTORY: neuro deficit, acute stroke suspected COMPARISON STUDY: No previous studies for comparison. TECHNIQUE: Helical axial images of the head were obtained without IV contrast. Automated exposure control was utilized for the study. A dose lowering technique was utilized adhering to the principles of ALARA. FINDINGS: There is no acute intracranial hemorrhage. Ventricular system is unremarkable. Basal cisterns are patent. There are no extra-axial fluid collections. A 2.9 x 1.3 cm extra-axial CSF density overlying the left frontoparietal convexity may reflect an arachnoid cyst. White matter hypodensity suggests small vessel disease. 1.2 cm infarct within left basal ganglia is likely chronic. No findings to suggest acute dural sinus thrombosis or acute territorial infarct. IMPRESSION: 1. No acute intracranial findings. 2. Moderate small vessel disease. 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 ACT 112: Negative or not required by law. Electronically signed by: Ian Ray M.D. 12/24/2023 9:56 AM Head CTA 12/24/23 08:51 CTA ANGIOGRAPHY OF THE HEAD CLINICAL HISTORY: neuro deficit, acute stroke suspected COMPARISON STUDY: No previous studies for comparison. TECHNIQUE: Helical axial images of the head were obtained following uneventful intravenous administration of 120 cc of Optiray. Sagittal and coronal reconstructions were viewed as well as maximal intensity projections on an independent 3-D workstation. Automated exposure control was utilized for the study. A dose lowering technique was utilized adhering to the principles of ALARA. FINDINGS: No acute intracranial hemorrhage is identified on the head CT which will be reported separately. Ventricular system is unremarkable. The basal cisterns are patent. Suspected small arachnoid cyst overlies the left frontoparietal convexity. 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 There is extensive plaque within bilateral cavernous carotids which results in moderate vessel stenosis bilaterally. The bilateral M1, M2, A1 and A2 segments are patent. Severe stenosis of the intracranial portion of the right vertebral artery is noted. There is moderate stenosis of the intracranial portion of the left vertebral artery. Basilar artery is patent. Posterior cerebral arteries are patent. Major dural sinuses are patent. There is no intracranial aneurysm or dissection. IMPRESSION: 1. No large vessel occlusion. No intracranial aneurysm. 2. Severe stenosis of the intracranial portion of the right vertebral artery and moderate stenosis of the intracranial portion of the left vertebral artery. Moderate stenoses within the bilateral cavernous carotids. ACT 112: Negative or not required by law. Electronically signed by: Ian Ray M.D. 12/24/2023 10:09 AM Neck CTA 12/24/23 08:51 CT ANGIOGRAPHY OF THE NECK WITH CONTRAST CLINICAL HISTORY: neuro deficit, acute stroke suspected COMPARISON STUDY: Carotid ultrasound March 23, 2011. Technique: CT angiography of the carotid and vertebral arteries was obtained using Optiray and 3D reconstruction on an independent workstation. NASCET criteria was utilized. Automated exposure control was utilized for the study. A dose lowering technique was utilized adhering to the principles of ALARA. CT DOSE: 1139.52 mGy.cm Findings: Emphysema is incidentally noted within the lung apices. There is no cervical spine fracture. There is no cervical lymphadenopathy. There is severe stenosis at the origin of the left vertebral artery. There is moderate stenosis of the intracranial portion of the left vertebral artery and severe stenosis within the intracranial portion of the right vertebral artery. The right vertebral artery is dominant. There is extensive plaque within the proximal right internal carotid artery which results in 30% stenosis. There is moderate plaque within the left carotid bifurcation without stenosis. There is no aneurysm or dissection within neck. IMPRESSION: 1. Extensive plaque within the proximal right internal carotid artery which results in 30% stenosis. Moderate plaque within the left carotid bifurcation without stenosis. 2. Severe stenosis at the origin of the left vertebral artery. Severe stenosis of the intracranial portion of the right vertebral artery and moderate stenosis of the intracranial portion of the left vertebral artery. ACT 112: Negative or not required by law. Electronically signed by: Ian Ray M.D. 12/24/2023 10:00 AM Discharge Plan Visit Data Chief Complaint: Leg Weakness, Bilateral Stated Complaint: WEAKNESS IN L LEG ED Provider: Kavitha Flynn Discharge Problem: Acute left-sided weakness, Hyperglycemia, HTN (hypertension) Patient Disposition: Admitted As Inpatient Discharge Instructions Interventions: ED Discharge Assessment Last Done: 12/24/23 13:50
[2023-12-24 09:06] LABS: Basophils # (auto) 0.04 K/uL (0.00-0.20); Basophils % (auto) 0.5 %; Eosinophils # (auto) 0.22 K/uL (0.00-0.50); Hematocrit (blood only) 41.5 % (42.0-52.0); Hemoglobin 14.1 g/dl (14.0-18.0); Immature Granulocytes # (auto) 0.05 K/uL (0.01-0.20); Immature Granulocytes % (auto) 0.7 %; Lymphocytes # (auto) 2.98 K/uL (1.20-3.40); Lymphocytes % (auto) 40.1 %; Mean Corpuscular Hemoglobin 30.4 pg (25.0-34.0); Mean Corpuscular Volume 89.4 fL (80.0-100.0); Monocytes # (auto) 0.82 K/uL (0.11-0.59); Neutrophils # (auto) 3.32 K/uL (1.40-6.50); Neutrophils % (auto) 44.7 %; Platelet Count 238 K/uL (130-400); RDW Coefficient of Variation 12.5 % (11.5-14.5); RDW Standard Deviation 41.1 fL (36.4-46.3); Red Blood Count 4.64 M/uL (4.70-6.10); White Blood Count 7.43 K/ul (4.8-10.8)
[2023-12-24] MEDS: SODIUM CHLORIDE 0.9% 1,000 ML IV SCH (09:18)
[2023-12-24 09:24] LABS: Albumin Globulin Ratio 1.3 (0.9-2); Albumin Level 4.3 gm/dl (3.4-5.0); Bilirubin,Total 0.5 mg/dl (0.2-1.0); Calcium 9.5 mg/dl (8.6-10.3); Creatinine Clr Calc Pharmacy 45.6 ml/min; Est GFR (African American) 57.9 ml/min; Est GFR (Non-African American) 49.9 ml/min; Globulin 3.3 gm/dl (2.5-4.0); Magnesium 1.7 mg/dl (1.7-2.4); Potassium 4.2 mmol/L (3.5-5.1); Total Protein 7.6 gm/dl (6.0-8.3)
[2023-12-24 09:29] LABS: Troponin I High Sensitivity 13.4 pg/ml (0-20)
[2023-12-24 09:35] LABS: INR 0.9 (0.9-1.1); Partial Thromboplastin Ratio 0.9; Partial Thromboplastin Time 23 Seconds (21-31); Prothrombin Time 10.3 Seconds (9.0-12.0)
[2023-12-24] MEDS: OPTIRAY 320 125ml IV ONE (09:41)
--- NOTE | 2023-12-24 09:57 | CT Scan Report ---
CT OF THE HEAD WITHOUT CONTRAST CLINICAL HISTORY: neuro deficit, acute stroke suspected COMPARISON STUDY: No previous studies for comparison. TECHNIQUE: Helical axial images of the head were obtained without IV contrast. Automated exposure con trol was utilized for the study. A dose lowering technique was utilized adhering to the principles o f ALARA. FINDINGS: There is no acute intracranial hemorrhage. Ventricular system is unremarkable. Basal cister ns are patent. There are no extra-axial fluid collections. A 2.9 x 1.3 cm extra-axial CSF density ove rlying the left frontoparietal convexity may reflect an arachnoid cyst. White matter hypodensity sugg ests small vessel disease. 1.2 cm infarct within left basal ganglia is likely chronic. No findings to suggest acute dural sinus thrombosis or acute territorial infarct. IMPRESSION: 1. No acute intracranial findings. 2. Moderate small vessel disease. 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 ACT 112: Negative or not required by law. Electronically signed by: Ian Ray M.D. 12/24/2023 9:56 AM
--- NOTE | 2023-12-24 10:03 | CT Scan Report ---
CT ANGIOGRAPHY OF THE NECK WITH CONTRAST CLINICAL HISTORY: neuro deficit, acute stroke suspected COMPARISON STUDY: Carotid ultrasound March 23, 2011. Technique: CT angiography of the carotid and vertebral arteries was obtained using Optiray and 3D rec onstruction on an independent workstation. NASCET criteria was utilized. Automated exposure control was utilized for the study. A dose lowering technique was utilized adhering to the principles of ALA RA. CT DOSE: 1139.52 mGy.cm Findings: Emphysema is incidentally noted within the lung apices. There is no cervical spine fracture . There is no cervical lymphadenopathy. There is severe stenosis at the origin of the left vertebral artery. There is moderate stenosis of the intracranial portion of the left vertebral artery and sever e stenosis within the intracranial portion of the right vertebral artery. The right vertebral artery is dominant. There is extensive plaque within the proximal right internal carotid artery which result s in 30% stenosis. There is moderate plaque within the left carotid bifurcation without stenosis. The re is no aneurysm or dissection within neck. IMPRESSION: 1. Extensive plaque within the proximal right internal carotid artery which results in 30% stenosis. Moderate plaque within the left carotid bifurcation without stenosis. 2. Severe stenosis at the origin of the left vertebral artery. Severe stenosis of the intracranial po rtion of the right vertebral artery and moderate stenosis of the intracranial portion of the left laura tebral artery. ACT 112: Negative or not required by law. Electronically signed by: Ian Ray M.D. 12/24/2023 10:00 AM
--- NOTE | 2023-12-24 10:11 | CT Scan Report ---
CTA ANGIOGRAPHY OF THE HEAD CLINICAL HISTORY: neuro deficit, acute stroke suspected COMPARISON STUDY: No previous studies for comparison. TECHNIQUE: Helical axial images of the head were obtained following uneventful intravenous administr ation of 120 cc of Optiray. Sagittal and coronal reconstructions were viewed as well as maximal inten sity projections on an independent 3-D workstation. Automated exposure control was utilized for the study. A dose lowering technique was utilized adhering to the principles of ALARA. FINDINGS: No acute intracranial hemorrhage is identified on the head CT which will be reported separa tely. Ventricular system is unremarkable. The basal cisterns are patent. Suspected small arachnoid cy st overlies the left frontoparietal convexity. 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 Ther e is extensive plaque within bilateral cavernous carotids which results in moderate vessel stenosis b ilaterally. The bilateral M1, M2, A1 and A2 segments are patent. Severe stenosis of the intracranial portion of the right vertebral artery is noted. There is moderate stenosis of the intracranial portio n of the left vertebral artery. Basilar artery is patent. Posterior cerebral arteries are patent. Robby or dural sinuses are patent. There is no intracranial aneurysm or dissection. IMPRESSION: 1. No large vessel occlusion. No intracranial aneurysm. 2. Severe stenosis of the intracranial portion of the right vertebral artery and moderate stenosis of the intracranial portion of the left vertebral artery. Moderate stenoses within the bilateral cavern ous carotids. ACT 112: Negative or not required by law. Electronically signed by: Ian Ray M.D. 12/24/2023 10:09 AM
[2023-12-24 10:22] LABS: Appearance Urine Clear (Clear); Bacteria Urine Automated None Seen (None Seen); Bilirubin Urine Negative (Negative); Blood Urine Negative (Negative); Cast Urine Automated 0-2 /lpf (0-2); Color Urine Dark Yellow; Epithelial Cell Urine Auto 0-2 /hpf (0-2); Glucose Urine UA Negative (Negative); Ketones Urine Trace (Negative); Leukocyte Esterase Urine Negative (Negative); Nitrite Urine Negative (Negative); Protein Urine 1+ (Negative); RBC Urine Automated 0-2 /hpf (0-2); Specific Gravity Urine 1.042 (1.000-1.030); Urobilinogen Urine Negative (Negative); WBC Urine Automated 0-5 /hpf (0-5)
[2023-12-24] MEDS: ASPIRIN 325 MG ECTAB PO STA (11:31)
[2023-12-24] MEDS ORDERED: GLUCOSE 10 TAB/TUBE PO PRN (11:42)
[2023-12-24] MEDS ORDERED: ALUMINUM/MAGNESIUM SUSP 30 ML UDC PO PRN (11:42)
[2023-12-24] MEDS ORDERED: DEXTROSE 50% 50 ML SYRINGE IV PRN (11:42)
[2023-12-24] MEDS ORDERED: GLUCAGON FOR INJ 1 MG VIAL SQ PRN (11:42)
[2023-12-24] MEDS ORDERED: CARBOHYDRATES FOR HYPOGLYCEMIA PO PRN (11:42)
[2023-12-24] MEDS ORDERED: GLUCOSE 40% GEL 15 GM TUBE PO PRN (11:42)
[2023-12-24] MEDS ORDERED: MELATONIN 3 MG TAB PO PRN (11:42)
[2023-12-24] MEDS ORDERED: ONDANSETRON INJ 2 MG/ML 2 ML VIAL IV PRN (11:42)
[2023-12-24] MEDS ORDERED: POLYETHYLENE (MIRALAX) 17 GM PACK PO PRN (11:42)
--- NOTE | 2023-12-24 12:20 | History & Physical Report ---
Date of Service December 24, 2023 Assessment & Plan (1) Acute left-sided weakness: Plan: mild weakness on the exam CT brain old CVA CTA brain, neck Extensive plaque within the proximal right internal carotid artery which results in 30% stenosis. Moderate plaque within the left carotid bifurcation without stenosis. 2. Severe stenosis at the origin of the left vertebral artery. Severe stenosis of the intracranial portion of the right vertebral artery and moderate stenosis of the intracranial portion of the left vertebral artery. plan continue ASA, start Plavix continue statins MRI brain lipid profile henoglobin A1C ECHO PT obtain MRI lumbar spine (2) Degenerative joint disease of right hip: Plan: tylenol PRN (3) HTN (hypertension): Plan: on Ramipril 5 mg, increase to 10 mg if there is no acute CVA (4) Hyperlipidemia: Plan: continue statins (5) Diabetes: Plan: insulins sliding scale History of Present Illness Chief Complaint: left leg weakness Primary Care Provider: Néstor Baird MD 78-year-old male presents emerged part with at bedside due to concern for left-sided weakness. He states he noted last night while getting into bed to go to sleep his left leg seemed slightly weaker compared to his right. He states while he slept well he does recall that it was more difficult to roll over at night and he feels this is likely from the left lower extremity weakness. He states this morning he had difficulty trying to ambulate as it felt as though his left leg would not hold him up. He states he did stumble into furniture and fu however did not fall and was not injured this morning. No recent fall or change in activity. No recent leg swelling or increased pain. He denies any increased low back or left hip pain. He denies noting any pain along the lower extremities at all just a sense of weakness. He was able to ambulate with a walker, CT brain is positive for old left basal ganglia infarct. CTA brain, neck Extensive plaque within the proximal right internal carotid artery which results in 30% stenosis. Moderate plaque within the left carotid bifurcation without stenosis.2. Severe stenosis at the origin of the left vertebral artery. Severe stenosis of the intracranial portion of the right vertebral artery and moderate stenosis of the intracranial portion of the left vertebral artery. He denies headache, visual difficulties, swallowing difficulties, ambulated in the room without a walker, left leg is slightly weaker than right Allergies Allergy/AdvReac Type Severity Reaction Status Date / Time amoxicillin Allergy Mild Nausea Verified 12/24/23 11:11 latex Allergy Mild RASH Verified 12/24/23 11:11 adhesive tape AdvReac Mild redness to Verified 12/24/23 11:11 skin Home Medications Medication Instructions Recorded Confirmed Type ascorbic acid (vitamin C) 1,000 mg 1 tab PO DAILY 04/17/18 12/24/23 History tablet (Vitamin C) calcium carbonate 600 mg-vitamin 1 cap PO QAM 04/17/18 12/24/23 History D3 5 mcg (200 unit) capsule (Calcium 600 + D(3)) multivitamin (Multiple Vitamins 1 tab PO QAM 04/17/18 12/24/23 History tablet) vitamin B complex 1 cap PO QAM 04/17/18 12/24/23 History blood sugar diagnostic (OneTouch #10 ea 03/20/19 08/08/23 History Ultra Blue Test Strip) lancets (SmartmarketTouch UltraSoft #50 ea 03/20/19 08/08/23 History Lancets) triamcinolone acetonide 0.1 % 1 appln topical BID PRN Skin 03/21/19 12/24/23 History topical cream Irritation Eye Promise Restore 1 tab PO QAM 10/27/20 12/24/23 History aspirin 81 mg tablet,delayed 81 mg PO DAILY 06/02/21 12/24/23 History release (Adult Low Dose Aspirin) acetaminophen 500 mg tablet 1,000 mg PO QAM 02/01/22 12/24/23 History (Tylenol Extra Strength) pravastatin 40 mg tablet 40 mg PO QAM #90 tabs 08/08/23 12/24/23 Rx famotidine 20 mg tablet (Pepcid) 20 mg PO DAILY 12/13/23 12/24/23 History sildenafil 100 mg tablet 100 mg PO DAILY PRN sexual 12/13/23 12/24/23 Rx activity #10 tabs metformin 500 mg tablet 1,000 mg PO BID 12/24/23 12/24/23 History naproxen 220 mg-diphenhydramine 25 2 tab PO HS 12/24/23 12/24/23 History mg tablet (Aleve PM) ramipril 5 mg capsule 5 mg PO QAM 12/24/23 12/24/23 History Past Med/Surg History Problem List Acute left-sided weakness (Acute) Right ankle pain Status post total hip replacement, right Prostate cancer (Acute) Colon cancer screening Pancreatic cyst Abnormality of gait and mobility (Chronic) Decreased hearing of both ears (Chronic) Degenerative joint disease of right hip Erectile dysfunction HTN (hypertension) (Chronic) Diabetes (Chronic) NIDDM Arthritis (Acute) Hyperlipidemia History of bilateral knee replacement Medical History Right ankle pain Pancreatic cyst Prostate cancer Actinic keratosis Chronic hoarseness GERD (gastroesophageal reflux disease) Hyperlipidemia Arthritis Diabetes HTN (hypertension) Surgical History History of hip replacement History of bilateral knee replacement History of colonoscopy History of prostatectomy H/O exploratory laparotomy History of tooth extraction History of rhinoplasty Family History Father Prostate cancer Brother Parkinson's disease Cancer Other No family history of adverse response to anesthesia Denies family history of Ovarian cancer Myocardial infarction Breast cancer Lung cancer Colorectal cancer Social History Smoking Status: Former smoker Tobacco Type: Cigarettes Age Started Using Tobacco: 16; Age Quit Using Tobacco: 30; packs per day: 1; Second Hand Exposure: No; Do You Dip or Chew Tobacco: No; Hx Alcohol Use: No Hx Substance Use: No Preferred Language: Yoruba Communication Ability: Effective Visual Impairment: Limited Hearing Ability: Normal Technical Administrative Assistant Required: No Beliefs That Will Affect Care: None marital status: Current Living Situation: Spouse Current Living Situation Comment: current occupational status: retired How many Children do You have: 3 Feels Safe at Home: Yes Childhood Exposure to Second-Hand Smoke: Yes caffeine: Yes Dental Care, Regularly: Yes Physical Activity Frequency: Does not Exercise Seatbelt Use: always Sunscreen Use: No (rarely goes out) Assistive Devices: Walker Review of Systems Review of Systems: All systems reviewed & are unremarkable except as noted in Subjective Physical Exam Physical Exam: GENERAL: alert, well appearing, well nourished, no distress, non-toxic EYE EXAM: normal conjunctiva, PERRL and EOM's grossly intact OROPHARYNX: no exudate, no erythema, lips, buccal mucosa, and tongue normal and mucous membranes are moist NECK: supple, no nuchal rigidity, no adenopathy, non-tender LUNGS: Clear to auscultation. Normal chest wall mechanics, no w/r/r HEART: no murmurs, S1 normal and S2 normal ABDOMEN: abdomen soft, non-tender, normo-active bowel sounds, no masses, no rebound or guarding. BACK: Back is symmetrical on inspection and there is no deformity, no midline tenderness, no CVA tenderness. SKIN: no rashes, petechiae, orbruising UPPER EXTREMITIES: upper extremities are grossly normal. FROM, nml pulses b/l. LOWER EXTREMITIES: No pitting edema. FROM, nml pulses b/l. Increased drift when holding left lower extremity up compared to the right. He states slight sense of increased numbness in the left lower extremity. NEURO EXAM: Normal sensorium, cranial nerves II-XII grossly intact, normal speech, no facial droop,nogross weakness of arms, no gross weakness of legs. Gross sensation intact. No ataxia. Results & Data Results & Data Vital Signs (Past 12 Hours) Vital Signs Temp Pulse Pulse Resp BP BP Pulse Ox 12/24/23 11:56 85 16 171/81 H 96 12/24/23 11:00 71 13 148/78 H 95 12/24/23 10:45 65 15 140/69 94 12/24/23 10:30 72 16 147/72 H 97 12/24/23 10:17 64 14 136/73 96 12/24/23 10:03 73 14 147/72 H 97 12/24/23 09:45 66 12 144/69 H 96 12/24/23 09:27 70 16 162/87 H 97 12/24/23 09:15 66 14 159/87 H 97 12/24/23 09:00 72 18 153/88 H 98 12/24/23 08:37 87 12/24/23 08:21 36.8 C 100 H 20 136/83 97 O2 Del Method 12/24/23 11:56 Room Air 12/24/23 11:00 Room Air 12/24/23 10:45 Room Air 12/24/23 10:30 Room Air 12/24/23 10:17 Room Air 12/24/23 10:03 Room Air 12/24/23 09:45 Room Air 12/24/23 09:27 Room Air 12/24/23 09:15 Room Air 12/24/23 09:00 Room Air 12/24/23 08:37 12/24/23 08:21 Room Air Laboratory Results Abnormal lab results 12/24/23 12/24/23 12/24/23 Range/Units 08:35 08:37 10:06 RBC 4.64 L (4.70-6.10) M/uL Hct 41.5 L (42.0-52.0) % [place] # (Auto) 0.82 H (0.11-0.59) K/uL Glucose 183 H (70-99(Fasting)) mg/dl POC Glucose 167 H (70-99) mg/dl Ur Specific [place] 1.042 H (1.000-1.030) Urine Protein 1+ H (Negative) Urine Ketones Trace H (Negative) Diagnostic Findings Head CT 12/24/23 08:51 CT OF THE HEAD WITHOUT CONTRAST CLINICAL HISTORY: neuro deficit, acute stroke suspected COMPARISON STUDY: No previous studies for comparison. TECHNIQUE: Helical axial images of the head were obtained without IV contrast. Automated exposure control was utilized for the study. A dose lowering technique was utilized adhering to the principles of ALARA. FINDINGS: There is no acute intracranial hemorrhage. Ventricular system is unremarkable. Basal cisterns are patent. There are no extra-axial fluid collections. A 2.9 x 1.3 cm extra-axial CSF density overlying the left fronto parietal convexity may reflect an arachnoid cyst. White matter hypodensity suggests small vessel disease. 1.2 cm infarct within left basal ganglia is likely chronic. No findings to suggest acute dural sinus thrombosis or acute territorial infarct. IMPRESSION: 1. No acute intracranial findings. 2. Moderate small vessel disease. 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 ACT 112: Negative or not required by law. Electronically signed by: Ian Ray M.D. 12/24/2023 9:56 AM Head CTA 12/24/23 08:51 CTA ANGIOGRAPHY OF THE HEAD CLINICAL HISTORY: neuro deficit, acute stroke suspected COMPARISON STUDY: No previous studies for comparison. TECHNIQUE: Helical axial images of the head were obtained following uneventful intravenous administration of 120 cc of Optiray. Sagittal and coronal reconstructions were viewed as well as maximal intensity projections on an independent 3-D workstation. Automated exposure control was utilized for the study. A dose lowering technique was utilized adhering to the principles of ALARA. FINDINGS: No acute intracranial hemorrhage is identified on the head CT which will be reported separately. Ventricular system is unremarkable. The basal cisterns are patent. Suspected small arachnoid cyst overlies the left frontoparietal convexity. 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 There is extensive plaque within bilateral cavernous carotids which results in moderate vessel stenosis bilaterally. The bilateral M1, M2, A1 and A2 segments are patent. Severe stenosis of the intracranial portion of the right vertebral artery is noted. There is moderate stenosis of the intracranial portion of the left vertebral artery. Basilar artery is patent. Posterior cerebral arteries are patent. Major dural sinuses are patent. There is no intracranial aneurysm or dissection. IMPRESSION: 1. No large vessel occlusion. No intracranial aneurysm. 2. Severe stenosis of the intracranial portion of the right vertebral artery and moderate stenosis of the intracranial portion of the left vertebral artery. Moderate stenoses within the bilateral cavernous carotids. ACT 112: Negative or not required by law. Electronically signed by: Ian Ray M.D. 12/24/2023 10:09 AM Neck CTA 12/24/23 08:51 CT ANGIOGRAPHY OF THE NECK WITH CONTRAST CLINICAL HISTORY: neuro deficit, acute stroke suspected COMPARISON STUDY: Carotid ultrasound March 23, 2011. Technique: CT angiography of the carotid and vertebral arteries was obtained using Optiray and 3D reconstruction on an independent workstation. NASCET criteria was utilized. Automated exposure control was utilized for the study. A dose lowering technique was utilized adhering to the principles of ALARA. CT DOSE: 1139.52 mGy.cm Findings: Emphysema is incidentally noted within the lung apices. There is no cervical spine fracture. There is no cervical lymphadenopathy. There is severe stenosis at the origin of the left vertebral artery. There is moderate stenosis of the intracranial portion of the left vertebral artery and severe stenosis within the intracranial portion of the right vertebral artery. The right vertebral artery is dominant. There is extensive plaque within the proximal right internal carotid artery which results in 30% stenosis. There is moderate plaque within the left carotid bifurcation without stenosis. There is no aneurysm or dissection within neck. IMPRESSION: 1. Extensive plaque within the proximal right internal carotid artery which results in 30% stenosis. Moderate plaque within the left carotid bifurcation without stenosis. 2. Severe stenosis at the origin of the left vertebral artery. Severe stenosis of the intracranial portion of the right vertebral artery and moderate stenosis of the intracranial portion of the left vertebral artery. ACT 112: Negative or not required by law. Electronically signed by: Ian Ray M.D. 12/24/2023 10:00 AM PG Care Time/CCT Total # of Minutes Spent Total Time Spent with Patient: Total time spent is greater than 50% in coordination of care (as documented) at patient's floor/unit and/or counseling patient: Coding Level of Care Code 13639 INT INP/OBS CARE 3/75MIN Diagnoses Acute left-sided weakness R53.1 Degenerative joint disease of right hip M16.11 Essential hypertension I10 Hypertension type: essential hypertension Hyperlipidemia E78.5 Type 2 diabetes mellitus without complication, without long-term current use of insulin E11.9 Diabetes mellitus type: type 2 Diabetes mellitus long term care phlebotomist insulin use: without [facility] use Diabetes mellitus complication status: without complication (3) HTN (hypertension) Hypertension type: essential hypertension Qualified Code(s): I10 - Essential (primary) hypertension (5) Diabetes Diabetes mellitus type: type 2 Diabetes mellitus long term care phlebotomist insulin use: without long term care phlebotomist use Diabetes mellitus complication status: without complication Qualified Code(s): E11.9 - Type 2 diabetes mellitus without complications
--- NOTE | 2023-12-24 12:30 | CT Scan Report ---
CT pelvis wo con CLINICAL HISTORY: Fall. COMPARISON STUDY: Pelvis and right hip radiographs November 27, 2020. CT of the abdomen pelvis January 14. TECHNIQUE: Axial images of the pelvis and hips were obtained without IV contrast. Sagittal and galarza l reconstructions were viewed. Automated exposure control was utilized for the study. A dose lowerin g technique was utilized adhering to the principles of ALARA. FINDINGS: Right hip arthroplasty is intact. There is no periprosthetic fracture or lucency. There are no acute fractures within the pelvis or hips. Sacroiliac joints and symphysis pubis are intact. Ther e are postoperative findings consistent with prostatectomy. Sigmoid diverticulosis without evidence f or acute diverticulitis. There is contrast within the bladder from recent CTA of the head and neck. N o filling defects within the bladder identified. There is no pelvic hematoma or lymphadenopathy. IMPRESSION: 1. No acute fractures within the pelvis or hips. 2. Intact total right hip arthroplasty. No periprosthetic fracture. ACT 112: Negative or not required by law. Electronically signed by: Ian Ray M.D. 12/24/2023 12:29 PM
[2023-12-24 12:45] LABS: Chol HDL Ratio 2.4 (0-5)
[2023-12-24 12:47] LABS: Estimated Average Glucose 157 mg/dl; Hemoglobin A1C 7.1 % (4.5-5.6)
[2023-12-24 13:08] LABS: Thyroid Stimulating Hormone 1.884 uIu/ml (0.300-4.500)
--- NOTE | 2023-12-24 13:18 | Magnetic Resonance Report ---
MRI OF THE BRAIN WITHOUT CONTRAST CLINICAL HISTORY: Left leg weakness. COMPARISON STUDY: Head CT and CTA of the head performed earlier today. TECHNIQUE: Utilizing a 1.5 Emilee magnet and dedicated coil, multiplanar, multiecho imaging of the bra in was performed without IV contrast. FINDINGS: A 9 mm linear focus of restricted diffusion within the posterior right frontal lobe on axia l diffusion-weighted sequence image 18 of 24 is hypointense on the ADC map. No additional foci of res tricted diffusion are present. There is no mass effect. There is no acute hemorrhage. An old left bas al ganglia infarct measures 1.8 x 0.9 cm. Ventricular system is unremarkable. Basal cisterns are avilez nt. Flow-voids for the major intracranial vessels are present. There is no intracranial mass on unenh anced exam. White matter T2 hyperintense foci suggest extensive small vessel disease. There is mild a trophy. 3.2 x 1.3 cm CSF signal intensity elliptical abnormality overlies the left frontoparietal con vexity. This represents an arachnoid cyst. Calvarial signal is normal. No evidence for sinusitis. IMPRESSION: 1. Small 9 mm acute infarct within the posterior right frontal lobe which accounts for left leg weakn ess. No mass effect. No acute hemorrhage. 2. 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 3. Mild atrophy and extensive small vessel disease. ACT 112: Negative or not required by law. Electronically signed by: Ian Ray M.D. 12/24/2023 1:15 PM
--- NOTE | 2023-12-24 13:37 | Magnetic Resonance Report ---
MRI OF THE LUMBAR SPINE WITHOUT CONTRAST CLINICAL HISTORY: Left leg weakness. COMPARISON STUDY: Lumbar spine radiographs March 29, 2019. TECHNIQUE: Utilizing a 1.5 Emilee magnet and dedicated coil, multiplanar, multiecho imaging of the [facility] spine was performed without IV contrast. FINDINGS: For purposes of numbering on this exam, the L5-S1 disc space is assigned to axial image 28 of 30. The re is mild dextroscoliosis of the mid to lower lumbar spine and minimal levoscoliosis upper lumbar sp ine. Vertebral body heights are maintained. 6 mm anterolisthesis of L4 and L5 is due to facet arthros is. No suspicious marrow replacement is present. The conus terminates at the upper L1 level. Paravert ebral soft tissues are unremarkable. Moderate to severe multilevel degenerative changes within the [facility] spine are present. L1-2: There is mild disc space narrowing with disc bulge and moderate facet arthrosis with ligamentou s hypertrophy. Mild to moderate central canal stenosis. There is moderate bilateral neural foraminal stenosis. L2-3: There is disc space narrowing with disc bulge, facet arthrosis and ligamentous hypertrophy. Fin dings result in moderate to severe central canal stenosis. Patent AP diameter canal is 4.9 mm. There is also moderate to severe bilateral neural foraminal stenosis. L3-4: There is disc space narrowing with disc bulge, facet arthrosis and ligamentous hypertrophy. The re is moderate central canal narrowing. There is moderate to severe left and moderate right neural fo raminal stenosis. L4-5: Anterolisthesis is due to severe facet arthrosis. There is ligamentous hypertrophy. There is mo derate central canal stenosis. There is also moderate narrowing of both neural foramen. L5-S1: Facet arthrosis is present. The central canal is patent. There is mild bilateral neural forami nal stenosis. IMPRESSION: 1. Moderate to severe facet arthrosis and degenerative disc disease within the lumbar spine, as descr ibed above. 2. Multilevel central canal stenosis, most pronounced at the L2-L3 level. 3. Multilevel neural foraminal stenosis, as above. 4. No lumbar spine fractures. ACT 112: Negative or not required by law. Electronically signed by: Ian Ray M.D. 12/24/2023 1:35 PM
[2023-12-24] MEDS ORDERED: TRIAMCINOLONE ACET 0.1% CR 15 GM TUBE TOP PRN (14:24)
--- NOTE | 2023-12-24 14:27 | Electrocardiogram Report ---
Test Reason : Blood Pressure : / mmHG Vent. Rate : 067 BPM Atrial Rate : 067 BPM P-R Int : 236 ms QRS Dur : 088 ms QT Int : 390 ms P-R-T Axes : 068 003 001 degrees QTc Int : 412 ms Sinus rhythm with 1st degree A-V block Possible Anterior infarct , age undetermined Abnormal ECG When compared with ECG of 29-OCT-2020 14:21, No significant change was found Confirmed by Cory Aquino ([id number]) on 12/24/2023 2:27:11 PM Referred By: REFERRED SELF Confirmed By:Cory Aquino
[2023-12-24] MEDS: CLOPIDOGREL BISULFATE 75 MG TAB PO ONE (17:15)
[2023-12-24] MEDS: INSULIN ASPART PER UNIT CHARGE SC SCH (17:41)
[2023-12-24] MEDS: hydrOXYzine HCl 10 MG TAB PO PRN (23:01)
--- NOTE | 2023-12-24 23:03 | XCELERA ---
[id number]
[2023-12-25] MEDS: CALCIUM 600MG + VIT D 400 IU TAB PO SCH (08:41)
[2023-12-25] MEDS: ASPIRIN 81 MG ECTAB PO SCH (08:41)
[2023-12-25] MEDS: ACETAMINOPHEN 500 MG TAB PO SCH (08:41)
[2023-12-25] MEDS: FAMOTIDINE 20 MG TAB PO SCH (08:41)
[2023-12-25] MEDS: ENALAPRIL MALEATE 10 MG TAB PO SCH (08:41)
[2023-12-25] MEDS ORDERED: PRAVASTATIN SOD 40 MG TAB PO SCH (09:00)
--- NOTE | 2023-12-25 09:24 | Neurology Consultation ---
Date of Consultation December 25, 2023 Assessment & Plan (1) Stroke: Plan 78-year-old male with acute right frontal, anterior cerebral artery territory, stroke, presenting with left lower extremity weakness, significantly improved this morning. No large vessel occlusion on CTA of the head. No hemodynamically significant stenosis of either internal carotid artery on CTA of the neck. Patient does have extensive atherosclerotic plaque in both the anterior and posterior circulation of the head and neck. Stroke risk factors for this patient include diabetes mellitus, hypertension, and dyslipidemia. Agree with dual antiplatelet therapy, aspirin and Plavix for the next 3 weeks. Afterwards, would discontinue an aspirin in favor of Plavix monotherapy. Agree with high intensity statin, atorvastatin as ordered. Would recommend 30-day mobile cardiac outpatient telemetry to assess for atrial fibrillation. If atrial fibrillation is identified, would recommend anticoagulation if there is no medical contraindication. Continue with medical management of diabetes and hypertension. May allow for permissive hypertension for 24 to 48 hours. Long-term systolic blood pressure goal around 130 mmHg. Consultations with PT/OT. Please call with any questions. Should not require additional outpatient neurology follow-up. Should follow-up with his PCP for ongoing management of cardiovascular risk factors. 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 He initially noticed the weakness prior to going to bed 2 nights ago, the symptom was present upon awakening the following morning resulting in some difficulty walking. It seems to be improved this morning. He denies any weakness of the left arm or face, no change in speech or vision. He denies any numbness. He denies a prior history of stroke or TIA. Past medical history notable for hypertension, hyperlipidemia, and diabetes mellitus. He takes daily aspirin, pravastatin, metformin, and ramipril. A CT of the head was negative for acute process. There was a chronic left basal ganglia infarct and moderate chronic small vessel ischemic disease. A CTA of the head revealed stenosis of both vertebrals and cavernous carotids. CTA of the neck revealed extensive plaque within the proximal right ICA, 30% stenosis and left vertebral artery origin stenosis. A brain MRI reveals a 9 mm acute infarct within the posterior right frontal lobe and redemonstrates the chronic left basal ganglia infarct as seen on CT as well as extensive chronic small vessel ischemic disease. I independently reviewed these images and was able to identify these findings. Allergies Allergy/AdvReac Type Severity Reaction Status Date / Time amoxicillin Allergy Mild Nausea Verified 12/24/23 11:11 latex Allergy Mild RASH Verified 12/24/23 11:11 adhesive tape AdvReac Mild redness to Verified 12/24/23 11:11 skin Home Medications Medication Instructions Recorded Confirmed Type ascorbic acid (vitamin C) 1,000 mg 1 tab PO DAILY 04/17/18 12/24/23 History tablet (Vitamin C) calcium carbonate 600 mg-vitamin 1 cap PO QAM 04/17/18 12/24/23 History D3 5 mcg (200 unit) capsule (Calcium 600 + D(3)) multivitamin (Multiple Vitamins 1 tab PO QAM 04/17/18 12/24/23 History tablet) vitamin B complex 1 cap PO QAM 04/17/18 12/24/23 History blood sugar diagnostic (OneTouch #10 ea 03/20/19 08/08/23 History Ultra Blue Test Strip) lancets (LuminetxTouch UltraSoft #50 ea 03/20/19 08/08/23 History Lancets) triamcinolone acetonide 0.1 % 1 appln topical BID PRN Skin 03/21/19 12/24/23 History topical cream Irritation Eye Promise Restore 1 tab PO QAM 10/27/20 12/24/23 History aspirin 81 mg tablet,delayed 81 mg PO DAILY 06/02/21 12/24/23 History release (Adult Low Dose Aspirin) acetaminophen 500 mg tablet 1,000 mg PO QAM 02/01/22 12/24/23 History (Tylenol Extra Strength) pravastatin 40 mg tablet 40 mg PO QAM #90 tabs 08/08/23 12/24/23 Rx famotidine 20 mg tablet (Pepcid) 20 mg PO DAILY 12/13/23 12/24/23 History sildenafil 100 mg tablet 100 mg PO DAILY PRN sexual 12/13/23 12/24/23 Rx activity #10 tabs metformin 500 mg tablet 1,000 mg PO BID 12/24/23 12/24/23 History naproxen 220 mg-diphenhydramine 25 2 tab PO HS 12/24/23 12/24/23 History mg tablet (Aleve PM) ramipril 5 mg capsule 5 mg PO QAM 12/24/23 12/24/23 History Patient History Medical History Pancreatic cyst monitoring Prostate cancer unsure of the timeframe "a while ago" Actinic keratosis Chronic hoarseness GERD (gastroesophageal reflux disease) hx - no recent problems Surgical History History of hip replacement History of colonoscopy History of prostatectomy H/O exploratory laparotomy ? SBO History of tooth extraction History of rhinoplasty Family History Father Prostate cancer Brother Parkinson's disease Cancer Bladder Other No family history of adverse response to anesthesia Denies family history of Ovarian cancer Myocardial infarction Breast cancer Lung cancer Colorectal cancer Social History Smoking Status: Smoker, status unknown Tobacco Type: Cigarettes Age Started Using Tobacco: 16; Age Quit Using Tobacco: 30; packs per day: 1; Second Hand Exposure: No; Do You Dip or Chew Tobacco: No; Hx Alcohol Use: No Hx Substance Use: No Preferred Language: Russian Communication Ability: Effective Visual Impairment: Limited Hearing Ability: Normal [employer] Required: No Beliefs That Will Affect Care: None marital status: Current Living Situation: Spouse Current Living Situation Comment: current occupational status: retired How many Children do You have: 3 Feels Safe at Home: Yes Childhood Exposure to Second-Hand Smoke: Yes caffeine: Yes Dental Care, Regularly: Yes Physical Activity Frequency: Does not Exercise Seatbelt Use: always Sunscreen Use: No (rarely goes out) Assistive Devices: Glasses Review of Systems Constitutional: no fever and no chills Eyes: no blind spots and no diplopia Ear, Nose, Mouth, Throat: no hearing loss Respiratory: no cough and no dyspnea Cardiovascular: no chest pain and no palpitations Gastrointestinal: no nausea and no vomiting Genitourinary: no urinary incontinence Musculoskeletal: + back pain; no myalgia Integumentary: no rash and no lesions Neurologic: as per Subjective / HPI, + gait abnormality and + localized weakness; no loss of sensation, no lack of coordination, no tremor(s), no abnormal movements, no headache(s), no abnormal speech, no confusion and no memory loss Psychiatric: no depression and no anxiety Hematologic / Lymphatic: no easy bleeding and no easy bruising Exam (Neuro) Constitutional: well developed and well nourished; no acute distress Eyes: normal visual [place] by confrontation, PERRL and EOM intact bilaterally; no nystagmus Neurologic: Oriented to:: Person, Place and Time Cognitive Function: Judgement and Insight Memory: Short Term Intact and Remote Intact Attention: Span Intact, Concentration Intact and Visual Intact Speech Fluency: negative Dysarthria or Dysfluency Speech Aphasia: negative Aphasia Fund of Knowledge: Current Events, Past History and Vocabulary Cranial Nerves: Normal II, III, IV, , V, VII, VIII, IX, X, XI and XII Motor Strength: Normal Lower Extremities and Normal Upper Extremities Motor Tone: Normal Lower Extremities and Normal Upper Extremities Muscle Bulk/Involuntary Movements: No Involuntary Movements; negative Muscle Atrophy Sensation: Light Touch Intact, Pain/Temperature Intact and Proprioception Intact Coordination: negative Dysdiadochokinesia, Finger-Nose Abnormal or Heel-Szymanski Abnormal Deep Tendon Reflexes: Rt Triceps: 2+, Lt Triceps: 2+, Rt Biceps: 2+, Lt Biceps: 2+, Rt Brachioradialis: 2+, Lt Brachioradialis: 2+, Rt Patellar: 2+, Lt Patellar: 2+, Rt Ankle: 1+ and Lt Ankle: 1+ Special Tests: Babinski Present (bilateral) Results & Data Vital Signs (Past 12 Hours) Vital Signs Temp Pulse Pulse Pulse Resp BP Pulse Ox 12/25/23 07:36 36.8 C 58 L 18 153/77 H 95 12/25/23 05:30 45 L 12/25/23 03:35 36.6 C 60 18 135/81 95 12/24/23 23:38 37.2 C 60 18 135/69 95 12/24/23 21:37 60 O2 Del Method 12/25/23 07:36 Room Air 12/25/23 05:30 12/25/23 03:35 Room Air 12/24/23 23:38 Room Air 12/24/23 21:37 Laboratory Results Hemoglobin A1c 7.1, triglycerides 86, cholesterol 176, LDL 86, HDL 73, vitamin B12 303 Diagnostic Findings Echocardiogram negative for cardioembolic source Coding Level of Care Code 54269 INT INP/OBS CARE 75MIN Diagnoses Stroke I63.9 Time Spent (min) 80
[2023-12-25] MEDS: ATORVASTATIN 40 MG TAB PO SCH (09:37)
[2023-12-25] MEDS: CLOPIDOGREL BISULFATE 75 MG TAB PO SCH (09:37)
--- NOTE | 2023-12-25 12:49 | Discharge Summary ---
Discharge Summary Date of Service December 25, 2023 Principal Dx & Hospital Course #1 = Principal Diagnosis (1) Acute left-sided weakness: Presented with right sided weakness and difficulty ambulating. CT brain old CVA CTA head/neck: Extensive plaque within the proximal right internal carotid artery which results in 30% stenosis. Moderate plaque within the left carotid bifurcation without stenosis. Severe stenosis at the origin of the left vertebr al artery. Severe stenosis of the intracranial portion of the right vertebral artery and moderate stenosis of the intracranial portion of the left vertebral artery. MRI brain: Small 9 mm acute infarct within the posterior right frontal lobe which accounts for left leg weakness. No mass effect. No acute hemorrhage Neurology consulted - DAPT ASA and plavix x 3 weeks, then just Plavix - Agree with high intensity statin, switched to atorvastatin 80mg - 30 day holter monitor A1c 7.1 - on metformin 500mg BID at baseline. Will defer increase in dose or changes in medication to outpatient provider. ECHO: EF 65-70%, no regional wall motional abnormalities. No interatrial shunt PT/OT - recommend home with home health [employer] - no needs for speech therapy (2) Degenerative joint disease of right hip: tylenol PRN (3) HTN (hypertension): on Ramipril 5 mg - monitor in the outpatient setting for need for tighter BP control, per neurology SBP goal <130 (4) Hyperlipidemia: Statin changed to atrovastatin 80mg (5) Diabetes: a1c 7.1 resume home metformin at discharge, defer increase to PCP Plan Dispo: discharge to home today with home health Notes For Next Care Provider admitted with right-sided weakness found to have 9 mm infarct of the posterior right frontal lobe. Doing well with PT OT, discharged home with home health. Advised to check blood pressures once a day to monitor for increasing BP meds. Dual antiplatelet therapy x 3 weeks, then switch to just plavix. 30-day heart monitor ordered. A1c: 7.1. Defer any increase in antiglycemic regimen to PCP Medication Changes From Visit stop pravastatin, started atorvastatin Added Plavix Admission HPI Per Admitting Provider 78-year-old male presents emerged part with at bedside due to concern for left-sided weakness. He states he noted last night while getting into bed to go to sleep his left leg seemed slightly weaker compared to his right. He states while he slept well he does recall that it was more difficult to roll over at night and he feels this is likely from the left lower extremity weakness. He states this morning he had difficulty trying to ambulate as it felt as though his left leg would not hold him up. He states he did stumble into furniture and fu however did not fall and was not injured this morning. No recent fall or change in activity. No recent leg swelling or increased pain. He denies any increased low back or left hip pain. He denies noting any pain along the lower extremities at all just a sense of weakness. He was able to ambulate with a walker, CT brain is positive for old left basal ganglia infarct. CTA brain, neck Extensive plaque within the proximal right internal carotid artery which results in 30% stenosis. Moderate plaque within the left carotid bifurcation without st enosis.2. Severe stenosis at the origin of the left vertebral artery. Severe stenosis of the intracranial portion of the right vertebral artery and moderate stenosis of the intracranial portion of the left vertebral artery. He denies headache, visual difficulties, swallowing difficulties, ambulated in the room without a walker, left leg is slightly weaker than right Discharge Exam General: seated in the chair, then ambulated to the bathroom.NAD, VS as above Resp: normal respiratory effort, lungs clear to auscultation CV: RRR, no murmur, Abd: normal bowel sounds, non tender, no hepatosplenomegaly Extremities: Moves all extremities, no edema Neuro: A&O x3, No gross neurodeficits. Updated Medication List Medication Instructions Recorded Confirmed Type ascorbic acid (vitamin C) 1,000 mg 1 tab PO DAILY 04/17/18 12/26/23 History tablet (Vitamin C) calcium carbonate 600 mg-vitamin 1 cap PO QAM 04/17/18 12/26/23 History D3 5 mcg (200 unit) capsule (Calcium 600 + D(3)) multivitamin (Multiple Vitamins 1 tab PO QAM 04/17/18 12/26/23 History tablet) vitamin B complex 1 cap PO QAM 04/17/18 12/26/23 History blood sugar diagnostic (OneTouch #10 ea 03/20/19 12/26/23 History Ultra Blue Test Strip) lancets (OneTouch UltraSoft #50 ea 03/20/19 12/26/23 History Lancets) triamcinolone acetonide 0.1 % 1 appln topical BID PRN Skin 03/21/19 12/26/23 History topical cream Irritation Eye Promise Restore 1 tab PO QAM 10/27/20 12/26/23 History aspirin 81 mg tablet,delayed 81 mg PO DAILY 06/02/21 12/26/23 History release (Adult Low Dose Aspirin) acetaminophen 500 mg tablet 1,000 mg PO QAM 02/01/22 12/26/23 History (Tylenol Extra Strength) famotidine 20 mg tablet (Pepcid) 20 mg PO DAILY 12/13/23 12/26/23 History sildenafil 100 mg tablet 100 mg PO DAILY PRN sexual 12/13/23 12/26/23 Rx activity #10 tabs metformin 500 mg tablet 1,000 mg PO BID 12/24/23 12/26/23 History naproxen 220 mg-diphenhydramine 25 2 tab PO HS 12/24/23 12/26/23 History mg tablet (Aleve PM) ramipril 5 mg capsule 5 mg PO QAM 12/24/23 12/26/23 History atorvastatin 40 mg tablet 80 mg (2 x 40 mg) PO QAM 90 days 12/25/23 12/26/23 Rx #180 tabs clopidogrel 75 mg tablet 75 mg PO QAM #90 tabs 12/25/23 12/26/23 Rx Hospital Stay Data Consultations 12/24/23 10:59 ED Decision to Admit Stat 12/25/23 08:05 Consult Neurology Routine Diagnostic Imagining Performed Head CT 12/24/23 08:51 CT OF THE HEAD WITHOUT CONTRAST CLINICAL HISTORY: neuro deficit, acute stroke suspected COMPARISON STUDY: No previous studies for comparison. TECHNIQUE: Helical axial images of the head were obtained without IV contrast. Automated exposure control was utilized for the study. A dose lowering technique was utilized adhering to the principles of ALARA. FINDINGS: There is no acute intracranial hemorrhage. Ventricular system is unrem arkable. Basal cisterns are patent. There are no extra-axial fluid collections. A 2.9 x 1.3 cm extra-axial CSF density overlying the left frontoparietal convexity may reflect an arachnoid cyst. White matter hypodensity suggests small vessel disease. 1.2 cm infarct within left basal ganglia is likely chronic. No findings to suggest acute dural sinus thrombosis or acute territorial infarct. IMPRESSION: 1. No acute intracranial findings. 2. Moderate small vessel disease. 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 ACT 112: Negative or not required by law. Electronically signed by: Ian Ray M.D. 12/24/2023 9:56 AM Head CTA 12/24/23 08:51 CTA ANGIOGRAPHY OF THE HEAD CLINICAL HISTORY: neuro deficit, acute stroke suspected COMPARISON STUDY: No previous studies for comparison. TECHNIQUE: Helical axial images of the head were obtained following uneventful intravenous administration of 120 cc of Optiray. Sagittal and coronal reconstructions were viewed as well as maximal intensity projections on an independent 3-D workstation. Automated exposure control was utilized for the study. A dose lowering technique was utilized adhering to the principles of ALARA. FINDINGS: No acute intracranial hemorrhage is identified on the head CT which will be reported separately. Ventricular system is unremarkable. The basal cisterns are patent. Suspected small arachnoid cyst overlies the left frontoparietal convexity. 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 There is extensive plaque within bilateral cavernous carotids which results in moderate vessel stenosis bilaterally. The bilateral M1, M2, A1 and A2 segments are patent. Severe stenosis of the intracranial portion of the right vertebral artery is noted. There is moderate stenosis of the intracranial portion of the left vertebral artery. Basilar artery is patent. Posterior cerebral arteries are patent. Major dural sinuses are patent. There is no intracranial aneurysm or dissection. IMPRESSION: 1. No large vessel occlusion. No intracranial aneurysm. 2. Severe stenosis of the intracranial portion of the right vertebral artery and moderate stenosis of the intracranial portion of the left vertebral artery. Moderate stenoses within the bilateral cavernous carotids. ACT 112: Negative or not required by law. Electronically signed by: Ian Ray M.D. 12/24/2023 10:09 AM Neck CTA 12/24/23 08:51 CT ANGIOGRAPHY OF THE NECK WITH CONTRAST CLINICAL HISTORY: neuro deficit, acute stroke suspected COMPARISON STUDY: Carotid ultrasound March 23, 2011. Technique: CT angiography of the carotid and vertebral arteries was obtained using Optiray and 3D reconstruction on an independent workstation. NASCET criteria was utilized. Automated exposure control was utilized for the study. A dose lowering technique was utilized adhering to the principles of ALARA. CT DOSE: 1139.52 mGy.cm Findings: Emphysema is incidentally noted within the lung apices. There is no cervical spine fracture. There is no cervical lymphadenopathy. There is severe stenosis at the origin of the left vertebral artery. There is moderate stenosis of the intracranial portion of the left vertebral artery and severe stenosis within the intracranial portion of the right vertebral artery. The right vertebral artery is dominant. There is extensive plaque within the proximal right internal carotid artery which results in 30% stenosis. There is moderate plaque within the left carotid bifurcation without stenosis. There is no aneurysm or dissection within neck. IMPRESSION: 1. Extensive plaque within the proximal right internal carotid artery which results in 30% stenosis. Moderate plaque within the left carotid bifurcation without stenosis. 2. Severe stenosis at the origin of the left vertebral artery. Severe stenosis of the intracranial portion of the right vertebral artery and moderate stenosis of the intracranial portion of the left vertebral artery. ACT 112: Negative or not required by law. Electronically signed by: Ian Ray M.D. 12/24/2023 10:00 AM Brain MRI 12/24/23 11:47 MRI OF THE BRAIN WITHOUT CONTRAST CLINICAL HISTORY: Left leg weakness. COMPARISON STUDY: Head CT and CTA of the head performed earlier today. TECHNIQUE: Utilizing a 1.5 Emilee magnet and dedicated coil, multiplanar, multiecho imaging of the brain was performed without IV contrast. FINDINGS: A 9 mm linear focus of restricted diffusion within the posterior right frontal lobe on axial diffusion-weighted sequence image 18 of 24 is hypointense on the ADC map. No additional foci of restricted diffusion are present. There is no mass effect. There is no acute hemorrhage. An old left basal ganglia infarct measures 1.8 x 0.9 cm. Ventricular system is unremarkable. Basal cisterns are patent. Flow-voids for the major intracranial vessels are present. There is no intracranial mass on unenhanced exam. White matter T2 hyperintense foci suggest extensive small vessel disease. There is mild atrophy. 3.2 x 1.3 cm CSF signal intensity elliptical abnormality overlies the left frontoparietal convexity. This represents an arachnoid cyst. Calvarial signal is normal. No evidence for sinusitis. IMPRESSION: 1. Small 9 mm acute infarct within the posterior right frontal lobe which accounts for left leg weakness. No mass effect. No acute hemorrhage. 2. 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 3. Mild atrophy and extensive small vessel disease. ACT 112: Negative or not required by law. Electronically signed by: Ian Ray M.D. 12/24/2023 1:15 PM Lumbar Spine MRI 12/24/23 11:48 MRI OF THE LUMBAR SPINE WITHOUT CONTRAST CLINICAL HISTORY: Left leg weakness. COMPARISON STUDY: Lumbar spine radiographs March 29, 2019. TECHNIQUE: Utilizing a 1.5 Emilee magnet and dedicated coil, multiplanar, multiecho imaging of the lumbar spine was performed without IV contrast. FINDINGS: For purposes of numbering on this exam, the L5-S1 disc space is assigned to axial image 28 of 30. There is mild dextroscoliosis of the mid to lower lumbar spine and minimal levoscoliosis upper lumbar spine. Vertebral body heights are maintained. 6 mm anterolisthesis of L4 and L5 is due to facet arthrosis. No suspicious marrow replacement is present. The conus terminates at the upper L1 level. Paravertebral soft tissues are unremarkable. Moderate to severe multilevel degenerative changes within the lumbar spine are present. L1-2: There is mild disc space narrowing with disc bulge and moderate facet arthrosis with ligamentous hypertrophy. Mild to moderate central canal stenosis. There is moderate bilateral neural foraminal stenosis. L2-3: There is disc space narrowing with disc bulge, facet arthrosis and ligamentous hypertrophy. Findings result in moderate to severe central canal stenosis. Patent AP diameter canal is 4.9 mm. There is also moderate to severe bilateral neural foraminal stenosis. L3-4: There is disc space narrowing with disc bulge, facet arthrosis and ligamentous hypertrophy. There is moderate central canal narrowing. There is moderate to severe left and moderate right neural foraminal stenosis. L4-5: Anterolisthesis is due to severe facet arthrosis. There is ligamentous hypertrophy. There is moderate central canal stenosis. There is also moderate narrowing of both neural foramen. L5-S1: Facet arthrosis is present. The central canal is patent. There is mild bilateral neural foraminal stenosis. IMPRESSION: 1. Moderate to severe facet arthrosis and degenerative disc disease within the lumbar spine, as described above. 2. Multilevel central canal stenosis, most pronounced at the L2-L3 level. 3. Multilevel neural foraminal stenosis, as above. 4. No lumbar spine fractures. ACT 112: Negative or not required by law. Electronically signed by: Ian Ray M.D. 12/24/2023 1:[address] 12/24/23 11:49 CT pelvis wo con CLINICAL HISTORY: Fall. COMPARISON STUDY: Pelvis and right hip radiographs November 27, 2020. CT of the abdomen pelvis January 14, 2014. TECHNIQUE: Axial images of the pelvis and hips were obtained without IV contrast. Sagittal and coronal reconstructions were viewed. Automated exposure control was utilized for the study. A dose lowering technique was utilized adhering to the principles of ALARA. FINDINGS: Right hip arthroplasty is intact. There is no periprosthetic fracture or lucency. There are no acute fractures within the pelvis or hips. Sacroiliac joints and symphysis pubis are intact. There are postoperative findings consistent with prostatectomy. Sigmoid diverticulosis without evidence for acute diverticulitis. There is contrast within the bladder from recent CTA of the head and neck. No filling defects within the bladder identified. There is no pelvic hematoma or lymphadenopathy. IMPRESSION: 1. No acute fractures within the pelvis or hips. 2. Intact total right hip arthroplasty. No periprosthetic fracture. ACT 112: Negative or not required by law. Electronically signed by: Ian Ray M.D. 12/24/2023 12:29 PM Pending Results Patient Have Any Pending Studies at Discharge: No Discharge Instructions Given to Patient (Per Discharging Provider) Mr. Cadet, You were hospitalized after having left leg weakness, brain imaging showed a small stroke that would explain the left sided weakness. You were seen by neurolology that recommended we do a heart monitor to check if you have atrial fibrialtion, increase your statin medication and add Plavix to your regiment. Your A1c was 7.1, we will defer any changes to your glycemic regiment to your PCP. You have been evaluated by PT/OT and Speech therapy - they recommend that you can return home with Home health PT coming to visit. Changes/Recommendations * Pravastatin changed to Atorvastatin 80mg * Plavix added - take this daily * Aspirin 81mg, you can stop this in 3 weeks, on 01/14 * A heart monitor will be delivered to your house with instructions on how to wear for 30 days, to check if you have any irregular heart rhythms that could have caused the stroke * Discuss with you PCP if additional changes need to be made to control your diabetes * Take your blood pressure once a day at different times a day to ensure that your blood pressure medication does not need to be increase. Record these numbers and bring them to your next PCP appointment Medications: Your medication list has been reviewed and reconciled upon discharge to ensure accuracy and continuity of care. An updated list of all your medications is included with your hospital discharge paperwork. Please review this list closely, and make note of any changes. Take your medications as instructed; do not skip a dose of your medicines. Make sure all of your doctors know every medicine you are taking (including [id number] medicines, vitamins, and supplements). Call your primary care provider before taking any new medicines (including over- the-counter medicines, vitamins, and supplements), because some of these may interact with your current medications, or may make your symptoms worse. Tell your primary care provider if you cannot afford your medications. Activity: You can do normal everyday activities as your body allows. Take rest breaks if you feel tired. Do not overexert. Stop activity if you have pain, shortness of breath or feel dizzy. Follow-up appointments: Make an appointment with your primary care physician within one week of discharge. A copy of this summary will be sent to them. Every time you see your primary care physician, or any other doctor, bring your medication list, and a list of questions. CONTACT YOUR PRIMARY CARE PROVIDER if you experience any of the following: Shortness of breath or difficulty breathing Fevers or chills Feeling tired with normal activity or experiencing dizziness or fainting Difficulty following your treatment plan, or difficulty taking medications CALL 911 OR GO TO THE EMERGENCY DEPARTMENT if you experience any of the following: Severe abdominal pain or nausea/vomiting Severe chest pain, or chest pain that radiates (moves) to your jaw or arm Sudden, severe shortness of breath or difficulty breathing Thank you for allowing us to participate in your care. Total Time Total Time Spent Total Time Spent (In Minutes): Time spend day of discharge 40 minutes including direct patient care, medication reconciliation, documentation, review of labs and images, and coordination of care. Supervising Physician Co-Signing Physician Notes MICHEL Supervision Note: I did not personally see or examine the patient today, but I verified all chavez points of MICHEL Cox's assessment and plan with the following exceptions/additions: None Coding Level of Care Code 86666 INP/OBS DISCH >30 MIN Diagnoses Acute left-sided weakness R53.1 Degenerative joint disease of right hip M16.11 Essential hypertension I10 Hyperlipidemia E78.5 Type 2 diabetes mellitus without complication, without long-term current use of insulin E11.9 Diabetes mellitus complication status: without complication Diabetes mellitus halfway insulin use: without halfway use Diabetes mellitus type: type 2
== END 2023-12-25 14:09 | disposition home health service (06) ==
LOC: ED 08:13 → 2W 08:13 → SUATTDRO 11:42 → 2W 13:50
DX: I63.9 Cerebral infarction, unspecified; Z79.899 Other long term (current) drug therapy; Z91.040 Latex allergy status; Z87.891 Personal history of nicotine dependence; Z86.73 Personal history of transient ischemic attack (TIA), and cerebral infarction without residual deficits; I65.21 Occlusion and stenosis of right carotid artery; I10 Essential (primary) hypertension; Z79.84 Long term (current) use of oral hypoglycemic drugs; E78.5 Hyperlipidemia, unspecified; Z79.82 Long term (current) use of aspirin; Z88.0 Allergy status to penicillin; E11.9 Type 2 diabetes mellitus without complications; I65.03 Occlusion and stenosis of bilateral vertebral arteries; Z91.048 Other nonmedicinal substance allergy status